=== PATIENT | female | born 1990 | race Caucasian/White ===

== ENCOUNTER 2020-10-11 19:29 | Outpatient (CLI) | payer OTHER ==
--- NOTE | 2020-10-11 21:41 | Ultrasound Report ---
PROCEDURE: Pelvic w/Transvaginal INDICATIONS: RT LOWER QUAD PAIN, STEATOSIS OF LIVER TECHNIQUE: Real-time scanning was performed of the pelvic organs, with image documentation. Additional endovagi nal scanning was necessary due to incomplete visualization of the adnexal and endometrial structures by transabdominal scanning. COMPARISON: None. FINDINGS: No pathologic free abdominal or pelvic fluid. Uterus: Uterus is normal in size at 9.4 x 5.3 x 6.6 cm. A small left lateral intramural fibroid is seen in the uterus measuring 0.6 x 0.6 x 0.5 cm. The endometrium measures 10 mm in combined thickness . Ovaries: Right ovary measures 3.9 x 2.4 x 4.1 cm (19.5 mL). Left ovary measures 2.2 x 1.8 x 1.7 cm ( 3.4 mL). A right ovarian cyst measures 3.0 x 2.1 x 2.4 cm with mildly thickened rogers. No separate ri ght adnexal mass is seen. IMPRESSION: 1. The right ovary is enlarged by a complex cyst with mildly thickened rogers, which is favored to re present a hemorrhagic cyst or corpus luteal cyst. Recommend repeat pelvic ultrasound in 6-12 weeks to evaluate for resolution. 2. Normal left ovary. No sonographic signs of ovarian torsion. Reviewed by: David Mendieta MD on 10/11/2020 9:39 PM PDT Approved by: David Mendieta MD on 10/11/2020 9:39 PM PDT Station ID: [id number]
--- NOTE | 2020-10-11 21:46 | Ultrasound Report ---
PROCEDURE: Abdomen Limited INDICATIONS: RT LOWER QUAD PAIN, STEATOSIS OF LIVER TECHNIQUE: Real-time scanning was performed of the abdominal and retroperitoneal organs, with image documentatio n. COMPARISON: None. FINDINGS: Liver: Liver is normal in size and mildly increased in echogenicity. Gallbladder: The gallbladder appears normal without gallstones or gallbladder wall thickening. There is no pericholecystic fluid. Sonographic Lynch sign is negative. Biliary ducts: Intrahepatic bile ducts are non-dilated. Extrahepatic bile duct caliber measures 3 m m. Normal is 6-7 mm or less in diameter, or 10 mm or less post-cholecystectomy. Pancreas: Visualized portions of the pancreas are sonographically normal. Kidneys: Right kidney normal in size and echotexture. Right kidney measures 9.2 cm long. No hydrone phrosis or nephrolithiasis. No solid masses. IVC: Intrahepatic inferior vena cava is patent. IMPRESSION: 1. No acute abnormality is seen in the right upper quadrant. Normal gallbladder. 2. Mildly increased hepatic echogenicity is nonspecific, but most commonly encountered in the settin g of hepatic steatosis. However, other causes of hepatocellular disease are not excluded. Recommend c linical correlation. Reviewed by: David Mendieta MD on 10/11/2020 9:44 PM PDT Approved by: David Mendieta MD on 10/11/2020 9:44 PM PDT Station ID: [id number]
== END 2020-10-11 19:30 | disposition home or self-care (01) ==
LOC: DI 19:29
PROVIDERS: ATTEND Nurse Practitioner Family
DX: R10.31 Right lower quadrant pain (principal); K76.0 Fatty (change of) liver, not elsewhere classified; N83.201 Unspecified ovarian cyst, right side

== ENCOUNTER 2020-12-20 08:03 | Outpatient (CLI) | payer OTHER ==
--- NOTE | 2020-12-20 11:44 | Ultrasound Report ---
PROCEDURE: Pelvic w/Transvaginal INDICATIONS: RIGHT OVARY CYST TECHNIQUE: Real-time scanning was performed of the pelvic organs, with image documentation. Additional endovagi nal scanning was necessary due to incomplete visualization of the adnexal and endometrial structures by transabdominal scanning. COMPARISON: 10/11/2020 FINDINGS: No pathologic free abdominal or pelvic fluid. Uterus: Uterus is normal in size at 8.6 x 4.6 x 5.9 cm. The endometrium measures 4 mm in combined t hickness. Homogeneous uterine echotexture. Ovaries: Right ovary measures 4.4 x 3.9 x 2.2 cm with ovarian volume of 19.7 mL. Previously describe d complicated right ovarian cyst has resolved. Left ovary measures 4.1 x 3.1 x 2.7 cm with ovarian vo lume of 17.9 mL. No suspicious ovarian or adnexal mass lesions. IMPRESSION: Unremarkable sonographic evaluation of the pelvis. Interval resolution of previously described compli cated right ovarian cyst. Reviewed by: Timothy West MD on 12/20/2020 11:43 AM PDT Approved by: Timothy West MD on 12/20/2020 11:43 AM PDT Station ID: [id number]
== END 2020-12-20 08:04 | disposition home or self-care (01) ==
LOC: DI 08:03
PROVIDERS: ATTEND Nurse Practitioner Family
DX: N83.201 Unspecified ovarian cyst, right side (principal)

== ENCOUNTER 2021-01-06 17:30 | Outpatient (CLI) | payer OTHER ==
[2021-01-06 17:51] LABS: BASOPHILS # (AUTO) 0.1 10^3/uL (0.0-0.1); BASOPHILS % (AUTO) 0.7 %; EOSINOPHILS # (AUTO) 0.3 10^3/uL (0.0-0.7); EOSINOPHILS % (AUTO) 4.1 %; HCT - HEMATOCRIT 38.5 % (37.0-47.0); LYMPHOCYTES # (AUTO) 1.8 10^3/uL (1.5-3.5); LYMPHOCYTES % (AUTO) 24.1 %; MEAN CORPUSCULAR HGB CONC 33.8 g/dL (32.0-36.0); MEAN CORPUSCULAR VOLUME 97.7 fL (81.0-99.0); MEAN PLATELET VOLUME 10.4 fL (7.9-10.8); MONOCYTES # (AUTO) 0.4 10^3/uL (0.0-1.0); MONOCYTES % (AUTO) 5.4 %; NEUTROPHILS % (AUTO) 65.4 %; PLT - PLATELET COUNT 230 10^3/uL (130-450); RED BLOOD COUNT 3.94 10^6/uL (4.20-5.40); RED CELL DISTRIBUTION WIDTH 11.7 % (12.0-15.0); WHITE BLOOD COUNT 7.6 x10^3/uL (4.8-10.8)
[2021-01-06 18:04] LABS: ALBUMIN 4.3 g/dL (3.2-5.5); ALBUMIN/GLOBULIN RATIO 1.4 (1.0-2.2); BILIRUBIN,TOTAL 0.6 mg/dL (0.2-1.0); CALCIUM 9.2 mg/dL (8.5-10.3); POTASSIUM 3.6 mmol/L (3.5-5.0); TOTAL PROTEIN 7.4 g/dL (6.7-8.2)
[2021-01-06 18:23] LABS: THYROID STIMULATING HORMONE 0.7 uIU/mL (0.34-5.60)
[2021-01-06 18:51] LABS: FOLLICLE STIMULATING HORMONE 2.58 mIU/mL
[2021-01-06 18:52] LABS: LUTEINIZING HORMONE 10.9 mIU/mL
== END 2021-01-06 17:31 | disposition home or self-care (01) ==
LOC: LAB 17:30
PROVIDERS: ATTEND Physician Assistant
DX: E28.2 Polycystic ovarian syndrome (principal)
CPT/HCPCS: 36415; 80053; 81599; 83001; 83002; 84402; 84403; 84443; 85025

== ENCOUNTER 2021-02-06 17:19 | Outpatient (CLI) | payer OTHER ==
[2021-02-06 17:35] LABS: BASOPHILS # (AUTO) 0.1 10^3/uL (0.0-0.1); BASOPHILS % (AUTO) 1.4 %; EOSINOPHILS # (AUTO) 0.2 10^3/uL (0.0-0.7); EOSINOPHILS % (AUTO) 2.6 %; HCT - HEMATOCRIT 37.4 % (37.0-47.0); HGB - HEMOGLOBIN 12.6 g/dL (12.0-16.0); LYMPHOCYTES # (AUTO) 1.7 10^3/uL (1.5-3.5); LYMPHOCYTES % (AUTO) 26.5 %; MEAN CORPUSCULAR HEMOGLOBIN 32.7 pg (27.0-31.0); MEAN CORPUSCULAR HGB CONC 33.7 g/dL (32.0-36.0); MEAN CORPUSCULAR VOLUME 97.1 fL (81.0-99.0); MEAN PLATELET VOLUME 10.6 fL (7.9-10.8); MONOCYTES # (AUTO) 0.5 10^3/uL (0.0-1.0); NEUTROPHILS # (AUTO) 4.1 10^3/uL (1.5-6.6); NEUTROPHILS % (AUTO) 62.2 %; PLT - PLATELET COUNT 222 10^3/uL (130-450); RED BLOOD COUNT 3.85 10^6/uL (4.20-5.40); RED CELL DISTRIBUTION WIDTH 11.8 % (12.0-15.0); WHITE BLOOD COUNT 6.5 x10^3/uL (4.8-10.8)
== END 2021-02-06 17:20 | disposition home or self-care (01) ==
LOC: LAB 17:19
PROVIDERS: ATTEND Physician Assistant
DX: R71.8 Other abnormality of red blood cells (principal)
CPT/HCPCS: 36415; 85025

== ENCOUNTER 2021-05-19 19:15 | Emergency (ER) | payer OTHER ==
[2021-05-19 19:38] LABS: BASOPHILS # (AUTO) 0.1 10^3/uL (0.0-0.1); BASOPHILS % (AUTO) 1.4 %; EOSINOPHILS # (AUTO) 0.3 10^3/uL (0.0-0.7); EOSINOPHILS % (AUTO) 3.3 %; HGB - HEMOGLOBIN 12.2 g/dL (12.0-16.0); LYMPHOCYTES % (AUTO) 25.3 %; MEAN CORPUSCULAR HEMOGLOBIN 32.8 pg (27.0-31.0); MEAN CORPUSCULAR VOLUME 99.5 fL (81.0-99.0); MEAN PLATELET VOLUME 10.4 fL (7.9-10.8); MONOCYTES # (AUTO) 0.6 10^3/uL (0.0-1.0); MONOCYTES % (AUTO) 7.8 %; NEUTROPHILS # (AUTO) 4.9 10^3/uL (1.5-6.6); NEUTROPHILS % (AUTO) 62.1 %; PLT - PLATELET COUNT 251 10^3/uL (130-450); RED BLOOD COUNT 3.72 10^6/uL (4.20-5.40); RED CELL DISTRIBUTION WIDTH 12.3 % (12.0-15.0); WHITE BLOOD COUNT 7.8 x10^3/uL (4.8-10.8)
[2021-05-19 19:52] LABS: ALBUMIN 4.4 g/dL (3.2-5.5); ALBUMIN/GLOBULIN RATIO 1.5 (1.0-2.2); CREATININE 0.8 mg/dL (0.4-1.0); POTASSIUM 3.6 mmol/L (3.5-5.0); TOTAL PROTEIN 7.3 g/dL (6.7-8.2)
[2021-05-19 20:24] LABS: BILIRUBIN,URINE NEGATIVE (NEGATIVE); GLUCOSE, URINE (UA) NEGATIVE (NEGATIVE); KETONES,URINE (UA) NEGATIVE (NEGATIVE); LEUKOCYTE ESTERASE, URINE NEGATIVE (NEGATIVE); NITRITE,URINE NEGATIVE (NEGATIVE); OCCULT BLOOD,URINE NEGATIVE (NEGATIVE); PH,URINE 6.5 PH (5.0-7.5); PROTEIN,URINE NEGATIVE (NEGATIVE); UROBILINOGEN,URINE 0.2 (NORMAL) E.U./dL (NORMAL)
[2021-05-19 20:25] LABS: CLARITY,URINE CLEAR (CLEAR); HCG UR QUAL NEGATIVE
[2021-05-19] MEDS ORDERED: ONDANSETRON 4 MG/2 ML VIAL IVP STA (20:35)
[2021-05-19] MEDS ORDERED: ACETAMINOPHEN 325 MG TABLET PO STA (20:36)
--- NOTE | 2021-05-19 22:38 | Ultrasound Report ---
PROCEDURE: Pelvic w/Doppler Complete INDICATIONS: RLQ pain since 1400 TECHNIQUE: Real-time scanning was performed of the pelvic organs, with image documentation. Additional endovagi nal scanning was necessary due to incomplete visualization of the adnexal and endometrial structures by transabdominal scanning. COMPARISON: None. FINDINGS: No pathologic free abdominal or pelvic fluid. Uterus: Uterus is retroverted and normal in size at 9.1 x 4.8 x 5.5 cm. The endometrium measures 7. 2 mm in combined thickness. There is a small echogenic nodule along the anterior wall of the endomet rial canal measuring 0.5 x 0.3 to 0.4 cm. Ovaries: The right ovary measures 2.3 x 2.0 x 3.5 cm for a volume of 12.4 cc. The left ovary measure s 3.9 x 2.5 x 3.1 cm for a volume of 15.5 cc. There are greater than 12 subcentimeter follicles in ea ch ovary. There is a dominant follicle on the left ovary measuring 1.7 cm. There is normal vascularit y to each ovary. No suspicious adnexal fluid. IMPRESSION: 1. 5 mm endometrial nodule, potentially a polyp 2. Numerous subcentimeter follicles in each ovary in the setting of slightly enlarged ovaries. This m eets ultrasound criteria for polycystic ovarian syndrome, however without hyperandrogenism or ovulato ry dysfunction, this is nonspecific and can be physiologic. Correlate with biochemical findings. Reviewed by: Janis Tapia MD on 05/19/2021 10:37 PM PST Approved by: Janis Tapia MD on 05/19/2021 10:37 PM PST Station ID: [id number]
[2021-05-19 22:45] VITALS: BP 112/63
--- NOTE | 2021-05-19 22:56 | ED Physician Documentation ---
History of Present Illness - Stated complaint Stated Complaint: ABD PX/NAUSEA - Chief complaint Chief Complaint: Abd Pain - History obtained from History obtained from: Patient - Additonal information Additional information: 31 -year-old woman with past Medical history of ectopic status post laparoscopy, appendicitis status post appendectomy, presents with right lower abdominal pain Associated with nausea starting suddenly at 1400. Pain is aching, constant, nonradiating, 3/10, without exacerbating or relieving symptoms. Patient's LMP was about 20 days ago. denies fever, diarrhea, back pain, urinary sx. Review of Systems Ten Systems: 10 systems reviewed and negative Constitutional: denies: Fever, Chills GI: reports: Abdominal Pain, Nausea. denies: Vomiting, Diarrhea : denies: Dysuria PD PAST MEDICAL HISTORY - Allergies Allergies/Adverse Reactions: Allergies Allergy/AdvReac Type Severity Reaction Status Date / Time No Known Drug Allergies Allergy Verified 05/19/21 19:22 PD ED PE NORMAL - Vitals Vital signs reviewed: Yes - General General: Alert and oriented X 3, No acute distress, Well developed/nourished - HEENT HEENT: Atraumatic, PERRL, EOMI - Neck Neck: Supple, no meningeal sign - Cardiac Cardiac: RRR - Respiratory Respiratory: No respiratory distress, Clear bilaterally - Abdomen Abdomen: Non tender, Non distended, Other (discomfort to RLQ palpation) - Back Back: No CVA TTP - Derm Derm: Normal color - Extremities Extremities: No deformity - Neuro Neuro: Alert and oriented X 3 - Psych Psych: Normal mood, Normal affect Results - Vitals Vitals: Vital Signs - 24 hr 05/19/21 05/19/21 19:20 22:44 Temperature 36.8 C Heart Rate 98 58 L Respiratory 18 18 Rate Blood Pressure 132/61 H 112/63 O2 Saturation 100 98 Oxygen O2 Source Room air - Labs Labs: Laboratory Tests 05/19/21 05/19/21 05/19/21 19:30 19:30 20:14 WBC 7.8 RBC 3.72 L Hgb 12.2 Hct 37.0 MCV 99.5 H MCH 32.8 H MCHC 33.0 RDW 12.3 Plt Count 251 MPV 10.4 Neut # (Auto) 4.9 Lymph # (Auto) 2.0 [place] # (Auto) 0.6 Eos # (Auto) 0.3 Baso # (Auto) 0.1 Absolute Nucleated RBC 0.00 Nucleated RBC % 0.0 Sodium 136 Potassium 3.6 Chloride 102 Carbon Dioxide 28 Anion Gap 6.0 BUN 13 Creatinine 0.8 Estimated GFR (MDRD) 83 L Glucose 116 H Calcium 9.0 Total Bilirubin 1.0 AST 18 ALT 15 Alkaline Phosphatase 31 L Total Protein 7.3 Albumin 4.4 Globulin 2.9 Albumin/Globulin Ratio 1.5 Lipase 46 Urine Color YELLOW Urine Clarity CLEAR Urine pH 6.5 Ur Specific [place] 1.020 Urine Protein NEGATIVE Urine Glucose (UA) NEGATIVE Urine Ketones NEGATIVE Urine Occult Blood NEGATIVE Urine Nitrite NEGATIVE Urine Bilirubin NEGATIVE Urine Urobilinogen 0.2 (NORMAL) Ur Leukocyte Esterase NEGATIVE Ur Microscopic Review NOT INDICATED Urine Culture Comments NOT INDICATED Urine HCG, Qual NEGATIVE PD MEDICAL DECISION MAKING - ED course ED course: 31-year-old woman presents with right lower abdominal pain, found to have multiple follicles versus cyst on bilateral ovaries as well as a uterine polyp versus nodule. I discussed these findings with the patient and advised her to follow-up with [employer]SE MANAGER. Return precautions given. Departure - Departure Disposition: 01 Home, Self Care Clinical Impression: Endometrial stromal nodule, Ovarian cyst Condition: Stable Instructions: Cysts Ovarian Follow-Up: Allyssa Lawson MD [Provider Admit Priv/Credential] - Comments: You were seen in the emergency department for abdominal pain. Your labwork looked good, you do not have a UTI, and you are not . You have multiple cysts on both of your ovaries and a 5 mm endometrium nodule on ultrasound that could potentially be a polyp. You should see your [employer]SE MANAGER or follow-up with our OB Dr. Lawson. Return to the emergency department if you have any new or worsening symptoms or other concerns. Discharge Date/Time: 05/19/21 23:04
== END 2021-05-19 23:04 | disposition home or self-care (01) ==
LOC: ED 19:15
DX: D26.1 Other benign neoplasm of corpus uteri (principal); N83.202 Unspecified ovarian cyst, left side; N83.201 Unspecified ovarian cyst, right side; R11.0 Nausea; Z90.49 Acquired absence of other specified parts of digestive tract
CPT/HCPCS: 36415; 80053; 81001; 81003; 81025; 83690; 85025; 87086; 93975; 96374; 99284

== ENCOUNTER 2021-06-06 18:32 | Emergency (ER) | payer OTHER ==
[2021-06-06 19:18] LABS: BASOPHILS # (AUTO) 0.1 10^3/uL (0.0-0.1); BASOPHILS % (AUTO) 0.8 %; EOSINOPHILS # (AUTO) 0.2 10^3/uL (0.0-0.7); EOSINOPHILS % (AUTO) 2.6 %; HGB - HEMOGLOBIN 12.3 g/dL (12.0-16.0); LYMPHOCYTES # (AUTO) 1.6 10^3/uL (1.5-3.5); LYMPHOCYTES % (AUTO) 17.4 %; MEAN CORPUSCULAR HEMOGLOBIN 32.5 pg (27.0-31.0); MEAN CORPUSCULAR HGB CONC 33.2 g/dL (32.0-36.0); MEAN CORPUSCULAR VOLUME 97.6 fL (81.0-99.0); MEAN PLATELET VOLUME 10.2 fL (7.9-10.8); MONOCYTES # (AUTO) 0.6 10^3/uL (0.0-1.0); MONOCYTES % (AUTO) 6.2 %; NEUTROPHILS # (AUTO) 6.5 10^3/uL (1.5-6.6); NEUTROPHILS % (AUTO) 72.7 %; PLT - PLATELET COUNT 235 10^3/uL (130-450); RED BLOOD COUNT 3.79 10^6/uL (4.20-5.40); RED CELL DISTRIBUTION WIDTH 12.2 % (12.0-15.0); WHITE BLOOD COUNT 8.9 x10^3/uL (4.8-10.8)
[2021-06-06 19:20] LABS: BILIRUBIN,URINE NEGATIVE (NEGATIVE); CLARITY,URINE CLEAR (CLEAR); GLUCOSE, URINE (UA) NEGATIVE (NEGATIVE); KETONES,URINE (UA) NEGATIVE (NEGATIVE); LEUKOCYTE ESTERASE, URINE NEGATIVE (NEGATIVE); NITRITE,URINE NEGATIVE (NEGATIVE); OCCULT BLOOD,URINE NEGATIVE (NEGATIVE); PROTEIN,URINE NEGATIVE (NEGATIVE); UROBILINOGEN,URINE 0.2 (NORMAL) E.U./dL (NORMAL)
[2021-06-06 19:32] LABS: ALBUMIN/GLOBULIN RATIO 1.5 (1.0-2.2); BILIRUBIN,TOTAL 0.7 mg/dL (0.2-1.0); CALCIUM 8.8 mg/dL (8.5-10.3); CREATININE 0.9 mg/dL (0.4-1.0); POTASSIUM 3.7 mmol/L (3.5-5.0); TOTAL PROTEIN 6.7 g/dL (6.7-8.2)
--- NOTE | 2021-06-06 20:10 | ED Physician Documentation ---
History of Present Illness - Stated complaint Stated Complaint: OVARY PX, BACK PX, NAUSEA - Chief complaint Chief Complaint: Abd Pain - History obtained from History obtained from: Patient - History of Present Illness Timing: How many weeks ago (3) Pain level max: 3 Pain level now: 3 - Additonal information Additional information: Patient is a 31-year-old female who presents to the emergency department complaining of right-sided pelvic pain. She had an ectopic at this site several years ago. She was seen here 2 to 3 weeks ago had a pelvic ultrasound which showed possible polycystic ovarian syndrome. She states that the pain has continued, unchanged from her prior visit. She states she took a home test today which was faintly positive. Came in for evaluation. No vaginal bleeding or discharge. Nothing makes it better or worse. Review of Systems Ten Systems: 10 systems reviewed and negative Constitutional: denies: Fever, Chills Nose: denies: Rhinorrhea / runny nose, Congestion Throat: denies: Sore throat Cardiac: denies: Chest pain / pressure Respiratory: denies: Cough GI: denies: Abdominal Pain, Nausea, Vomiting, Diarrhea Skin: denies: Rash Musculoskeletal: denies: Neck pain, Back pain Neurologic: denies: Headache PD PAST MEDICAL HISTORY - Past Medical History Past Medical History: Yes Cardiovascular: None Respiratory: None Neuro: Migraines Endocrine/Autoimmune: None GI: None MORNING SHOW HOST: Ectopic , Ovarian cysts, Miscarriage(s) : None HEENT: None Psych: None Musculoskeletal: None Derm: None - Past Surgical History Past Surgical History: Yes General: Appendectomy /MORNING SHOW HOST: Other - Present Medications Home Medications: Ambulatory Orders Medication Instructions Recorded Confirmed Ondansetron Odt [Zofran Odt] 4 mg TL Q6H PRN 06/06/21 06/06/21 - Allergies Allergies/Adverse Reactions: Allergies Allergy/AdvReac Type Severity Reaction Status Date / Time No Known Drug Allergies Allergy Verified 06/06/21 18:36 - Social History Does the pt smoke?: No Smoking Status: Never smoker Does the pt drink ETOH?: No Does the pt have substance abuse?: Yes Substance Use and Type: CBD oil / Products - Immunizations Immunizations are current?: No Immunizations: Other immun not current PD ED PE NORMAL - Vitals Vital signs reviewed: Yes - General General: Alert and oriented X 3, No acute distress, Well developed/nourished - HEENT HEENT: Moist mucous membranes - Neck Neck: Supple, no meningeal sign - Cardiac Cardiac: RRR, Strong equal pulses - Respiratory Respiratory: No respiratory distress, Clear bilaterally - Abdomen Abdomen: Soft, Non tender, Non distended - Female Female : Pt declined - Derm Derm: Warm and dry - Extremities Extremities: No edema, No calf tenderness / cord - Neuro Neuro: Alert and oriented X 3 - Psych Psych: Normal mood, Normal affect Results - Vitals Vitals: Vital Signs - 24 hr 06/06/21 06/06/21 06/06/21 18:36 19:12 19:14 Temperature 36.8 C Heart Rate 82 Respiratory 18 16 16 Rate Blood Pressure 140/85 H O2 Saturation 98 06/06/21 20:13 Temperature 36.7 C Heart Rate 81 Respiratory 16 Rate Blood Pressure 138/83 H O2 Saturation 97 Oxygen O2 Source Room air - Labs Labs: Laboratory Tests 06/06/21 06/06/21 06/06/21 18:50 19:14 19:14 WBC 8.9 RBC 3.79 L Hgb 12.3 Hct 37.0 MCV 97.6 MCH 32.5 H MCHC 33.2 RDW 12.2 Plt Count 235 MPV 10.2 Neut # (Auto) 6.5 Lymph # (Auto) 1.6 [place] # (Auto) 0.6 Eos # (Auto) 0.2 Baso # (Auto) 0.1 Absolute Nucleated RBC 0.00 Nucleated RBC % 0.0 Sodium 135 Potassium 3.7 Chloride 100 L Carbon Dioxide 28 Anion Gap 7.0 BUN 11 Creatinine 0.9 Estimated GFR (MDRD) 72 L Glucose 112 H Calcium 8.8 Total Bilirubin 0.7 AST 17 ALT 15 Alkaline Phosphatase 30 L Total Protein 6.7 Albumin 4.0 Globulin 2.7 Albumin/Globulin Ratio 1.5 Lipase 38 HCG, Quant Urine Color YELLOW Urine Clarity CLEAR Urine pH 7.0 Ur Specific [place] 1.015 Urine Protein NEGATIVE Urine Glucose (UA) NEGATIVE Urine Ketones NEGATIVE Urine Occult Blood NEGATIVE Urine Nitrite NEGATIVE Urine Bilirubin NEGATIVE Urine Urobilinogen 0.2 (NORMAL) Ur Leukocyte Esterase NEGATIVE Ur Microscopic Review NOT INDICATED Urine Culture Comments NOT INDICATED 06/06/21 19:14 WBC RBC Hgb Hct MCV MCH MCHC RDW Plt Count MPV Neut # (Auto) Lymph # (Auto) [place] # (Auto) Eos # (Auto) Baso # (Auto) Absolute Nucleated RBC Nucleated RBC % Sodium Potassium Chloride Carbon Dioxide Anion Gap BUN Creatinine Estimated GFR (MDRD) Glucose Calcium Total Bilirubin AST ALT Alkaline Phosphatase Total Protein Albumin Globulin Albumin/Globulin Ratio Lipase HCG, Quant 9.82 Urine Color Urine Clarity Urine pH Ur Specific [place] Urine Protein Urine Glucose (UA) Urine Ketones Urine Occult Blood Urine Nitrite Urine Bilirubin Urine Urobilinogen Ur Leukocyte Esterase Ur Microscopic Review Urine Culture Comments PD MEDICAL DECISION MAKING - ED course Complexity details: reviewed results, re-evaluated patient, considered differential, d/w patient ED course: 31-year-old female with right pelvic pain, ongoing for the past 2 to 3 weeks. Possibly related to ovarian cyst. She has had the right fallopian tube removed. Her beta hCG is 9.8. Ultrasound was at the bedside and we did discuss with the patient whether she wanted to have an ultrasound tonight or not. Patient has elected not to repeat an ultrasound tonight and instead will repeat her hCG level in 3 days. She will return if she worsens. Abdomen is soft, nontender nondistended. Patient counseled regarding signs and symptoms for which I martha elieve and urgent re-evaluation would be necessary. Patient with good understanding of and agreement to plan and is comfortable going home at this time This document was made in part using voice recognition software. While efforts are made to proofread this document, sound alike and grammatical errors may occur. Departure - Departure Disposition: 01 Home, Self Care Clinical Impression: Pelvic pain, Positive test Instructions: ED Pelvic Pain [facility] Follow-Up: Jeffrey Schmitt MD [Primary Care Provider] - Tomorrow Comments: Your hCG level is 9.8 today. This could represent a very early . It is recommended that you have a repeat hCG in [address] can [address] an order for this. If this is positive, it is likely a true . If it is negative, it is likely not a true . We did have an ultrasound ordered today, but you have declined this. I think this is reasonable awaiting the results of the repeat hCG. Please return if you worsen. Discharge Date/Time: 06/06/21 20:13
[2021-06-06 20:15] VITALS: BP 138/83
== END 2021-06-06 20:13 | disposition home or self-care (01) ==
LOC: ED 18:32
DX: R10.2 Pelvic and perineal pain (principal); Z32.01 Encounter for pregnancy test, result positive
CPT/HCPCS: 36415; 80053; 81001; 81003; 83690; 84702; 85025; 87086; 99283; 99284

== ENCOUNTER 2021-06-09 08:05 | Outpatient (CLI) | payer OTHER | END 2021-06-09 08:06 | disposition home or self-care (01) | LOC: LAB 08:05 | PROVIDERS: ATTEND Physician Assistant | DX: Z32.01 Encounter for pregnancy test, result positive (principal) | CPT/HCPCS: 36415; 81025; 84702 ==

== ENCOUNTER 2021-06-19 15:42 | Outpatient (CLI) | payer OTHER ==
--- NOTE | 2021-06-20 12:49 | Ultrasound Report ---
PROCEDURE: OB First Trimester w/TV INDICATIONS: POSITIVE TEST OUTSIDE/PRIOR DATING DATA: Last menstrual period (LMP): 05/07/2021. LMP-based estimated date of delivery (KAYE): 02/11/2022. First dating scan (date and location): 06/19/2001. Estimated date of delivery (KAYE) from first dating scan: Not applicable. TECHNIQUE: Real-time scanning was performed of the fetus and maternal pelvic organs, with image documentation. Endovaginal scanning was also performed to better visualize the fetus and maternal ovaries. COMPARISON: None FINDINGS: No gestational sac in the uterus. Echogenic endometrium with a double layer thickness of 5 mm. No free fluid in the pelvis. Both ovaries are normal in size. There are numerous subcentimeter cy sts in the peripheral aspects of both ovaries are well identified in the right and at least 6 identif ied in the left. IMPRESSION: No sonographic evidence of intrauterine . Multiple subcentimeter cysts in the peripheral aspects of both ovaries raising concern for DCIS in th e appropriate clinical setting. Reviewed by: Braeden Bravo MD on 06/20/2021 12:48 PM PST Approved by: Braeden Bravo MD on 06/20/2021 12:48 PM PST Station ID: [id number]
== END 2021-06-19 15:43 | disposition home or self-care (01) ==
LOC: DI 15:42
PROVIDERS: ATTEND Physician Assistant
DX: N83.202 Unspecified ovarian cyst, left side (principal); N83.201 Unspecified ovarian cyst, right side; Z32.01 Encounter for pregnancy test, result positive

== ENCOUNTER 2021-08-23 19:25 | Emergency (ER) | payer OTHER ==
[2021-08-23 19:51] LABS: BILIRUBIN,URINE NEGATIVE (NEGATIVE); GLUCOSE, URINE (UA) NEGATIVE (NEGATIVE); KETONES,URINE (UA) NEGATIVE (NEGATIVE); LEUKOCYTE ESTERASE, URINE NEGATIVE (NEGATIVE); NITRITE,URINE NEGATIVE (NEGATIVE); OCCULT BLOOD,URINE NEGATIVE (NEGATIVE); PROTEIN,URINE NEGATIVE (NEGATIVE); UROBILINOGEN,URINE 0.2 (NORMAL) E.U./dL (NORMAL)
[2021-08-23 19:56] LABS: BASOPHILS # (AUTO) 0.1 10^3/uL (0.0-0.1); BASOPHILS % (AUTO) 1.2 %; EOSINOPHILS # (AUTO) 0.5 10^3/uL (0.0-0.7); EOSINOPHILS % (AUTO) 6.2 %; HCT - HEMATOCRIT 36.5 % (37.0-47.0); HGB - HEMOGLOBIN 12.1 g/dL (12.0-16.0); LYMPHOCYTES # (AUTO) 2.2 10^3/uL (1.5-3.5); LYMPHOCYTES % (AUTO) 28.4 %; MEAN CORPUSCULAR HEMOGLOBIN 32.5 pg (27.0-31.0); MEAN CORPUSCULAR HGB CONC 33.2 g/dL (32.0-36.0); MEAN CORPUSCULAR VOLUME 98.1 fL (81.0-99.0); MEAN PLATELET VOLUME 10.6 fL (7.9-10.8); MONOCYTES # (AUTO) 0.6 10^3/uL (0.0-1.0); MONOCYTES % (AUTO) 7.5 %; NEUTROPHILS # (AUTO) 4.3 10^3/uL (1.5-6.6); NEUTROPHILS % (AUTO) 56.6 %; PLT - PLATELET COUNT 233 10^3/uL (130-450); RED BLOOD COUNT 3.72 10^6/uL (4.20-5.40); RED CELL DISTRIBUTION WIDTH 12.2 % (12.0-15.0); WHITE BLOOD COUNT 7.6 x10^3/uL (4.8-10.8)
[2021-08-23 20:03] LABS: CLARITY,URINE CLEAR (CLEAR)
[2021-08-23 20:22] LABS: ALBUMIN 4.6 g/dL (3.2-5.5); ALBUMIN/GLOBULIN RATIO 1.6 (1.0-2.2); BILIRUBIN,TOTAL 0.5 mg/dL (0.2-1.0); CALCIUM 9.3 mg/dL (8.5-10.3); CREATININE 0.8 mg/dL (0.4-1.0); POTASSIUM 3.6 mmol/L (3.5-5.0); TOTAL PROTEIN 7.5 g/dL (6.7-8.2)
[2021-08-23 20:43] VITALS: BP 126/82
--- NOTE | 2021-08-23 20:59 | ED Physician Documentation ---
History of Present Illness - Stated complaint Stated Complaint: ABD PX - Chief complaint Chief Complaint: Abd Pain - History obtained from History obtained from: Patient - History of Present Illness Timing: How many days ago (3) Pain level max: 10 Pain level now: 5 - Additonal information Additional information: 31-year-old female presents to the emergency department left pelvic pain. Started about 3 days ago, waxing and waning in intensity. She states it was worse last night. She states similar to prior ovarian cyst. She has had a right-sided ectopic in the past that ruptured her fallopian tube. Concerned about possible ectopic. She states she took 4 tests at home, 2 of which were weakly positive, The other 2 were negative. Has a miscarriage at about 8 weeks EGA in May. hCG level level trended to 3 at that time. Nothing makes the pain better or worse. 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 - Present Medications Home Medications: Ambulatory Orders Medication Instructions Recorded Confirmed Pnv No.95/Ferrous Fum/Folic AC 1 tab PO DAILY PM 08/23/21 08/23/21 [ Tablet] - Allergies Allergies/Adverse Reactions: Allergies Allergy/AdvReac Type Severity Reaction Status Date / Time No Known Drug Allergies Allergy Verified 08/23/21 19:35 - Social History Does the pt smoke?: No Smoking Status: Never smoker Does the pt drink ETOH?: No Does the pt have substance abuse?: Yes - Immunizations Immunizations are current?: No Immunizations: Other immun not current - POLST Patient has POLST: No PD ED PE NORMAL - Vitals Vital signs reviewed: Yes - General General: Alert and oriented X 3, No acute distress, Well developed/nourished - HEENT HEENT: Moist mucous membranes - Neck Neck: Supple, no meningeal sign - Cardiac Cardiac: RRR - Respiratory Respiratory: No respiratory distress, Clear bilaterally - Abdomen Abdomen: Soft, Non tender, Non distended - Derm Derm: Warm and dry - Extremities Extremities: No edema - Neuro Neuro: Alert and oriented X 3 - Psych Psych: Normal mood, Normal affect Results - Vitals Vitals: Vital Signs - 24 hr 08/23/21 08/23/21 19:27 20:42 Temperature 36.8 C 36.6 C Heart Rate 87 60 Respiratory 16 16 Rate Blood Pressure 148/86 H 126/82 H O2 Saturation 99 99 Oxygen O2 Source Room air - Labs Labs: Laboratory Tests 08/23/21 08/23/21 08/23/21 19:37 19:48 19:48 WBC 7.6 RBC 3.72 L Hgb 12.1 Hct 36.5 L MCV 98.1 MCH 32.5 H MCHC 33.2 RDW 12.2 Plt Count 233 MPV 10.6 Neut # (Auto) 4.3 Lymph # (Auto) 2.2 [place] # (Auto) 0.6 Eos # (Auto) 0.5 Baso # (Auto) 0.1 Absolute Nucleated RBC 0.00 Nucleated RBC % 0.0 Sodium 135 Potassium 3.6 Chloride 100 L Carbon Dioxide 27 Anion Gap 8.0 BUN 14 Creatinine 0.8 Estimated GFR (MDRD) 83 L Glucose 90 Calcium 9.3 Total Bilirubin 0.5 AST 19 ALT 17 Alkaline Phosphatase 31 L Total Protein 7.5 Albumin 4.6 Globulin 2.9 Albumin/Globulin Ratio 1.6 Lipase 40 HCG, Quant Urine Color YELLOW Urine Clarity CLEAR Urine pH 6.0 Ur Specific [place] 1.025 Urine Protein NEGATIVE Urine Glucose (UA) NEGATIVE Urine Ketones NEGATIVE Urine Occult Blood NEGATIVE Urine Nitrite NEGATIVE Urine Bilirubin NEGATIVE Urine Urobilinogen 0.2 (NORMAL) Ur Leukocyte Esterase NEGATIVE Ur Microscopic Review NOT INDICATED Urine Culture Comments NOT INDICATED 08/23/21 19:48 WBC RBC Hgb Hct MCV MCH MCHC RDW Plt Count MPV Neut # (Auto) Lymph # (Auto) [place] # (Auto) Eos # (Auto) Baso # (Auto) Absolute Nucleated RBC Nucleated RBC % Sodium Potassium Chloride Carbon Dioxide Anion Gap BUN Creatinine Estimated GFR (MDRD) Glucose Calcium Total Bilirubin AST ALT Alkaline Phosphatase Total Protein Albumin Globulin Albumin/Globulin Ratio Lipase HCG, Quant < 0.60 Urine Color Urine Clarity Urine pH Ur Specific [place] Urine Protein Urine Glucose (UA) Urine Ketones Urine Occult Blood Urine Nitrite Urine Bilirubin Urine Urobilinogen Ur Leukocyte Esterase Ur Microscopic Review Urine Culture Comments - Rads (name of study) Pelvic ultrasound Radiology: Final report received, EMP read contemporaneously, See rad report (Left ovarian hemorrhagic cyst) PD MEDICAL DECISION MAKING - ED course Complexity details: reviewed results, re-evaluated patient, considered differential, d/w patient ED course: 31-year-old female with what appears to be a left-sided hemorrhagic ovarian cyst. We will continue supportive care and have her follow-up with her doctor. hCG is negative. She declines pain medication here or for home. No significant lab abnormalities. Patient counseled regarding signs and symptoms for which I believe and urgent re-evaluation would be necessary. Patient with good understanding of and agreement to plan and is comfortable going home at this time This document was made in part using voice recognition software. While efforts are made to proofread this document, sound alike and grammatical errors may occur. Departure - Departure Disposition: 01 Home, Self Care Clinical Impression: Hemorrhagic cyst of left ovary Condition: Good Instructions: ED Cyst Ovarian Follow-Up: Jeffrey Schmitt MD [Primary Care Provider] - Comments: Please follow-up with your doctor for further care. Return if you worsen. These will generally resolve on their own, your doctor may want to perform a repeat ultrasound in 4 to 6 weeks to ensure resolution. Return for worsening pain, lightheadedness, dizziness or other new or worrisome symptoms. Your hCG is negative today. Discharge Date/Time: 08/23/21 21:06
--- NOTE | 2021-08-23 21:38 | Ultrasound Report ---
PROCEDURE: Pelvic w/Transvag+Doppler Comp INDICATIONS: pelvic pain, L, h.o ovarian cysts TECHNIQUE: Real-time scanning was performed of the pelvic organs, with image documentation. Additional endovagi nal scanning was necessary due to incomplete visualization of the adnexal and endometrial structures by transabdominal scanning. COMPARISON: None. FINDINGS: No pathologic free abdominal or pelvic fluid. Uterus: Uterus is normal in size at 9.4 x 5.2 x 5.7 cm. The endometrium measures 10 mm in combined thickness. Ovaries: Right ovary measures 3.8 x 1.9 x 3.4 cm.. It has greater than 12 follicles. Left ovary silvia ures 2.5 x 1.8 x 2.6 cm. It also has multiple follicles. There is a complex cyst measuring 2.5 x 1.8 x 2.6 cm involving the left ovary. It may represent a collapsed hemorrhagic cyst. A second prominent cyst measures 1.7 x 1.6 x 1.9 cm. There is intraovarian flow bilaterally by duplex. IMPRESSION: 1. No evidence of ovarian torsion. No evidence of acute pelvic process. 2. Numerous bilateral ovarian cysts can support a potential clinical diagnosis of polycystic ovary sy ndrome. 3. There are couple of prominent left ovarian cysts. One of the cysts may be a collapsed hemorrhagic cyst. Reviewed by: Shaji Alvarez MD on 08/23/2021 9:37 PM PST Approved by: Shaji Alvarez MD on 08/23/2021 9:37 PM PST Station ID: [id number]
== END 2021-08-23 21:06 | disposition home or self-care (01) ==
LOC: ED 19:25
DX: N83.202 Unspecified ovarian cyst, left side (principal)
CPT/HCPCS: 36415; 80053; 81001; 81003; 81025; 83690; 84702; 85025; 87086; 93975; 99283; 99284

== ENCOUNTER 2021-10-06 12:07 | Outpatient (CLI) | payer OTHER ==
[2021-10-06 12:39] LABS: ESTIMATED AVERAGE GLUCOSE 111 mg/dL (70-100); HEMOGLOBIN A1c% 5.5 % (4.27-6.07)
[2021-10-06 12:55] LABS: THYROID STIMULATING HORMONE 0.57 uIU/mL (0.34-5.60)
== END 2021-10-06 12:08 | disposition home or self-care (01) ==
LOC: LAB 12:07
PROVIDERS: ATTEND Obstetrics & Gynecology
DX: E28.2 Polycystic ovarian syndrome (principal); Z32.01 Encounter for pregnancy test, result positive
CPT/HCPCS: 36415; 81599; 83036; 84144; 84402; 84403; 84443; 84702

== ENCOUNTER 2021-10-08 16:14 | Outpatient (CLI) | payer OTHER | END 2021-10-08 16:15 | disposition home or self-care (01) | LOC: LAB 16:14 | PROVIDERS: ATTEND Obstetrics & Gynecology | DX: Z32.01 Encounter for pregnancy test, result positive (principal) | CPT/HCPCS: 36415; 84702 ==

== ENCOUNTER 2021-10-10 08:00 | Outpatient (CLI) | payer OTHER | END 2021-10-10 08:01 | disposition home or self-care (01) | LOC: LAB 08:00 | PROVIDERS: ATTEND Obstetrics & Gynecology | DX: Z32.01 Encounter for pregnancy test, result positive (principal) | CPT/HCPCS: 36415; 84702 ==

== ENCOUNTER 2021-10-23 14:00 | Emergency (ER) | payer OTHER ==
[2021-10-23 14:48] LABS: BILIRUBIN,URINE NEGATIVE (NEGATIVE); GLUCOSE, URINE (UA) NEGATIVE (NEGATIVE); KETONES,URINE (UA) NEGATIVE (NEGATIVE); LEUKOCYTE ESTERASE, URINE NEGATIVE (NEGATIVE); NITRITE,URINE NEGATIVE (NEGATIVE); OCCULT BLOOD,URINE NEGATIVE (NEGATIVE); PH,URINE 6.5 PH (5.0-7.5); PROTEIN,URINE NEGATIVE (NEGATIVE); UROBILINOGEN,URINE 0.2 (NORMAL) E.U./dL (NORMAL)
[2021-10-23 14:49] LABS: CLARITY,URINE CLEAR (CLEAR)
--- NOTE | 2021-10-23 15:42 | ED Physician Documentation ---
PD HPI URI - Stated complaint Stated Complaint: FEVER - Chief complaint Chief Complaint: Fever - History obtained from History obtained from: Patient - Additional information Additional information: 31-year-old woman at 7 weeks . She developed body aches chills and a fever of 102.3 today. Scratchy throat but no cough. No shortness of breath. No runny nose or urinary complaints. 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 , Ovarian cysts, Miscarriage(s) : None HEENT: None Psych: None Musculoskeletal: None Derm: None - Past Surgical History Past Surgical History: Yes General: Appendectomy /TOOL GRINDING MACHINE OPERATOR: Other - Present Medications Home Medications: Ambulatory Orders Medication Instructions Recorded Confirmed Pnv No.95/Ferrous Fum/Folic AC 1 tab PO DAILY PM 08/23/21 08/23/21 [ Tablet] - Allergies Allergies/Adverse Reactions: Allergies Allergy/AdvReac Type Severity Reaction Status Date / Time No Known Drug Allergies Allergy Verified 08/23/21 19:35 - Social History Does the pt smoke?: No Smoking Status: Never smoker Does the pt drink ETOH?: No Does the pt have substance abuse?: Yes - Immunizations Immunizations are current?: No Immunizations: Other immun not current - POLST Patient has POLST: No PD ED PE NORMAL - Vitals Vital signs reviewed: Yes - General General: Alert and oriented X 3, No acute distress - HEENT HEENT: Pharynx benign - Cardiac Cardiac: RRR, No murmur - Respiratory Respiratory: No respiratory distress, Clear bilaterally - Abdomen Abdomen: Non tender - Back Back: No CVA TTP - Derm Derm: No rash - Neuro Neuro: Alert and oriented X 3, Normal speech Results - Vitals Vitals: Vital Signs - 24 hr 10/23/21 14:06 Temperature 37.4 C Heart Rate 99 Respiratory 16 Rate Blood Pressure 111/70 O2 Saturation 98 Oxygen O2 Source Room air - Labs Labs: Laboratory Tests 10/23/21 10/23/21 14:21 15:15 Urine Color STRAW Urine Clarity CLEAR Urine pH 6.5 Ur Specific [place] <=1.005 Urine Protein NEGATIVE Urine Glucose (UA) NEGATIVE Urine Ketones NEGATIVE Urine Occult Blood NEGATIVE Urine Nitrite NEGATIVE Urine Bilirubin NEGATIVE Urine Urobilinogen 0.2 (NORMAL) Ur Leukocyte Esterase NEGATIVE Ur Microscopic Review NOT INDICATED Urine Culture Comments NOT INDICATED Nasal Adenovirus (PCR) NOT DETECTED Nasal B. parapertussis DNA (PCR) NOT DETECTED Nasal Coronavir 229E PCR NOT DETECTED Nasal Coronavir HKU1 PCR NOT DETECTED Nasal Coronavir NL63 PCR NOT DETECTED Nasal Coronavir OC43 PCR NOT DETECTED Nasal Enterovir/Rhinovir PCR NOT DETECTED Nasal Influenza B PCR NOT DETECTED Nasal Influenza A PCR NOT DETECTED Nasal Parainfluen 1 PCR NOT DETECTED Nasal Parainfluen 2 PCR NOT DETECTED Nasal Parainfluen 3 PCR NOT DETECTED Nasal Parainfluen 4 PCR NOT DETECTED Nasal RSV (PCR) NOT DETECTED Nasal B.pertussis DNA PCR NOT DETECTED Nasal C.pneumoniae (PCR) NOT DETECTED Mack Human Metapneumo PCR NOT DETECTED Nasal M.pneumoniae (PCR) NOT DETECTED Nasal SARS-CoV-2 (PCR) DETECTED A PD MEDICAL DECISION MAKING - ED course ED course: 31-year-old woman at 7 weeks presents with symptoms consistent with COVID and found to be positive for same. She has no symptoms of cramping or bleeding. I discussed with the pharmacist, she is not indicated for Mab therapy and none of the oral therapeutics are thought to be safe in . As such conservative care and Tylenol was advised. Departure - Departure Disposition: 01 Home, Self Care Clinical Impression: COVID-19 Condition: Good Record reviewed to determine appropriate education?: Yes Instructions: ED Viral Syndrome Comments: You are found today to be positive for COVID-19. You need to quarantine for 10 days starting today. Any sick contacts and recent contact should be notified of your COVID-positive status. I did some research, none of the therapeutics is indicated or known to be safe in . Tylenol as needed for aches and pains. Drink plenty of fluids.
[2021-10-23 16:15] LABS: CORONAVIRUS 229E-RESP PCR NOT DETECTED; CORONAVIRUS HKU1-RESP PCR NOT DETECTED; CORONAVIRUS NL63-RESP PCR NOT DETECTED; CORONAVIRUS OC43-RESP PCR NOT DETECTED
[2021-10-23 16:16] LABS: B. PARAPERTUSSIS- RESP PCR PAN NOT DETECTED; B. PERTUSSIS- RESP PCR PANEL NOT DETECTED; C. PNEUMONIAE- RESP PCR PANEL NOT DETECTED; HUMAN METAPNEUMOVIRUS NOT DETECTED; INFLUENZA A- RESP PCR PANEL NOT DETECTED; INFLUENZA B - RESP PCR PANEL NOT DETECTED; M. PNEUMONIAE- RESP PCR PANEL NOT DETECTED; PARAINFLUENZA VIRUS 1 NOT DETECTED; PARAINFLUENZA VIRUS 2 NOT DETECTED; PARAINFLUENZA VIRUS 3 NOT DETECTED; PARAINFLUENZA VIRUS 4 NOT DETECTED; RHINOVIRUS/ENTEROVIRUS NOT DETECTED; RSV- RESP PCR PANEL NOT DETECTED; SARS-CoV-2 -RESP PCR PANEL DETECTED
[2021-10-23 16:36] VITALS: BP 140/75
== END 2021-10-23 16:36 | disposition home or self-care (01) ==
LOC: ED 14:00
DX: O98.511 Other viral diseases complicating pregnancy, first trimester (principal); U07.1 COVID-19; Z3A.01 Less than 8 weeks gestation of pregnancy
CPT/HCPCS: 81001; 81003; 87086; 87633; 99282; 99283

== ENCOUNTER 2021-10-24 14:07 | Emergency (ER) | payer OTHER ==
--- NOTE | 2021-10-24 14:23 | ED Physician Documentation ---
PD HPI FEMALE - Stated complaint Stated Complaint: C+,VAGINAL BLEEDING - Chief complaint Chief Complaint: General - History obtained from History obtained from: Patient - History of Present Illness Timing - onset: How many hours ago (3-4), Today Timing - duration: Hours Timing - details: Abrupt onset Associated symptoms: Fever (2 days), Pelvic pain (cramping), Vaginal bleeding (passed small nickel sized clot and then some spotting red blood. Not bleeding further.) Contributing factors: (7 weeks by dates), Other (She did start with general malaise, fevers, nausea 2 days ago and tested positive for COVID yesterday.). No: Exposed to STD OB-PROVER History: Miscarriage(s) Similar symptoms before: Diagnosis (Has had miscarriages in early previously.) Recently seen: Emergency Dept (yesterday due to fever, aches, malaise. Did not have pelvic pain nor bleeding at that time.) Review of Systems Constitutional: reports: Fever (for 2 days), Myalgias, Fatigue Nose: reports: Congestion. denies: Rhinorrhea / runny nose Throat: denies: Sore throat Respiratory: denies: Cough GI: denies: Vomiting, Diarrhea : denies: Dysuria, Discharge Skin: denies: Rash Neurologic: reports: Generalized weakness, Headache PD PAST MEDICAL HISTORY - Past Medical History Cardiovascular: None Respiratory: None Neuro: Migraines Endocrine/Autoimmune: None GI: None PROVER: Ectopic , Ovarian cysts, Miscarriage(s) : None HEENT: None Psych: None Musculoskeletal: None Derm: None - Past Surgical History Past Surgical History: Yes General: Appendectomy /PROVER: Other - Present Medications Home Medications: Ambulatory Orders Medication Instructions Recorded Confirmed Pnv No.95/Ferrous Fum/Folic AC 1 tab PO DAILY PM 08/23/21 08/23/21 [ Tablet] - Allergies Allergies/Adverse Reactions: Allergies Allergy/AdvReac Type Severity Reaction Status Date / Time No Known Drug Allergies Allergy Verified 08/23/21 19:35 - Social History Does the pt smoke?: No Smoking Status: Never smoker Does the pt drink ETOH?: No Does the pt have substance abuse?: Yes - Immunizations Immunizations are current?: No Immunizations: Other immun not current - POLST Patient has POLST: No PD ED PE NORMAL - Vitals Vital signs reviewed: Yes - General General: Alert and oriented X 3, No acute distress (does appear concerned about possible miscarriage. ), Well developed/nourished - Abdomen Abdomen: Soft, Non tender, Non distended - Female Female : Deferred - Rectal Rectal: Deferred - Back Back: No CVA TTP - Derm Derm: Normal color Results - Vitals Vitals: Vital Signs - 24 hr 10/24/21 14:15 Temperature 37.4 C Heart Rate 86 Respiratory 18 Rate Blood Pressure 120/69 O2 Saturation 98 Oxygen O2 Source Room air - Labs Labs: Laboratory Tests 10/24/21 10/24/21 10/24/21 14:43 14:43 14:43 WBC 3.4 L RBC 3.77 L Hgb 12.3 Hct 36.5 L MCV 96.8 MCH 32.6 H MCHC 33.7 RDW 12.3 Plt Count 165 MPV 10.6 Neut # (Auto) 2.5 Lymph # (Auto) 0.3 L Lipscomb # (Auto) 0.7 Eos # (Auto) 0.0 Baso # (Auto) 0.0 Absolute Nucleated RBC 0.00 Nucleated RBC % 0.0 Sodium 135 Potassium 3.2 L Chloride 102 Carbon Dioxide 24 Anion Gap 9.0 BUN 7 Creatinine 0.7 Estimated GFR (MDRD) 96 Glucose 95 Calcium 8.7 HCG, Quant 2158.00 - Rads (name of study) OB U/S Radiology: Prelim report reviewed (gestational sac without pole 5w2d. right 2 cm CL cyst. no free fluid. no HR but is early .), See rad report PD MEDICAL DECISION MAKING - ED course Complexity details: reviewed results (she states she knows she is rH positive.), d/w organizational consultant (Drs. Raymond and Lulu were both in the OR. They conveyed through circulating nurse, their office will follow up with the patient regarding any repeat testing. She has ultrasound planned November 03.) Departure - Departure Disposition: 01 Home, Self Care Clinical Impression: Vaginal bleeding before 22 weeks gestation Qualifiers: Weeks of gestation: less than 8 weeks Qualified Code(s): Z3A.01 - Less than 8 weeks gestation of Condition: Stable Record reviewed to determine appropriate education?: Yes Instructions: Bleeding Early Preg Follow-Up: Ronnie Raymond MD [Provider Admit Priv/Credential] - Comments: Your ultrasound showed a gestational sac in the uterus measuring about 5 weeks 2 days. This is early enough to not really be able to see a heartbeat etc. The progression of the can be assessed using a hCG quantitative blood test . Here This would be confounded with your COVID-positive and not wanting to really contaminate the lab etc. I tried talking with the GREEK PROFESSOR but both physicians were in the OR at this point. They relayed to to tell you that they would have their office contact you and arrange follow-up. Tylenol or ibuprofen if needed for pains and cramps. Stay well-hydrated. Return if significantly increased bleeding, cramps, pain, etc.
[2021-10-24 14:26] VITALS: BP 120/69
[2021-10-24 14:49] LABS: BASOPHILS % (AUTO) 0.3 %; HCT - HEMATOCRIT 36.5 % (37.0-47.0); HGB - HEMOGLOBIN 12.3 g/dL (12.0-16.0); LYMPHOCYTES # (AUTO) 0.3 10^3/uL (1.5-3.5); LYMPHOCYTES % (AUTO) 8.8 %; MEAN CORPUSCULAR HEMOGLOBIN 32.6 pg (27.0-31.0); MEAN CORPUSCULAR HGB CONC 33.7 g/dL (32.0-36.0); MEAN CORPUSCULAR VOLUME 96.8 fL (81.0-99.0); MEAN PLATELET VOLUME 10.6 fL (7.9-10.8); MONOCYTES # (AUTO) 0.7 10^3/uL (0.0-1.0); NEUTROPHILS # (AUTO) 2.5 10^3/uL (1.5-6.6); NEUTROPHILS % (AUTO) 71.6 %; PLT - PLATELET COUNT 165 10^3/uL (130-450); RED BLOOD COUNT 3.77 10^6/uL (4.20-5.40); RED CELL DISTRIBUTION WIDTH 12.3 % (12.0-15.0); WHITE BLOOD COUNT 3.4 x10^3/uL (4.8-10.8)
[2021-10-24 14:57] LABS: CALCIUM 8.7 mg/dL (8.5-10.3); CREATININE 0.7 mg/dL (0.4-1.0); POTASSIUM 3.2 mmol/L (3.5-5.0)
[2021-10-24] MEDS: IBUPROFEN 600 MG TABLET PO STA (15:00)
--- NOTE | 2021-10-24 16:25 | Ultrasound Report ---
PROCEDURE: OB First Trimester w/TV INDICATIONS: 7w, Vag bleed, note covid positive OUTSIDE/PRIOR DATING DATA: Last menstrual period (LMP): 09/04/2021. LMP-based estimated date of delivery (KAYE): 06/24/2022. First dating scan (date and location): 10/24/2021. Estimated date of delivery (KAYE) from first dating scan: 06/24/2022. The below data below was generated using the ultrasound KAYE of 06/24/2022 TECHNIQUE: Real-time scanning was performed of the fetus and maternal pelvic organs, with image documentation. Endovaginal scanning was also performed to better visualize the fetus and maternal ovaries. COMPARISON: None FINDINGS: Embryo: There is an intrauterine gestational sac measuring approximately 0.58 cm in size and correla jessica with approximately 5 weeks and 2 days estimated gestational age. No pole is identified. No yolk sac is seen. No evidence for perigestational hemorrhage. Heart rate: No cardiac activity visualized at this time. Measurement variability in dating: +/- 4 weeks by LMP, +/- 7 days by mean sac diameter (use before 6 weeks gestation if crown-rump length not able to be measured), +/- 5 days by crown-rump length (6-12 weeks gestation). Maternal organs: Ovaries demonstrate presence of a right corpus luteal cyst measuring 2.0 cm in size . Incidental note of uterine fibroids. One measures approximately 0.8 x 0.6 x 0.7 cm and the second m easures approximately 0.8 x 0.6 x 0.8 cm.. IMPRESSION: 1. Single intrauterine gestation visualized with estimated sonographic gestational age of approximate ly 5 weeks and 2 days. No pole, yolk sac, or cardiac activity identified this time. Other awan, no acute sonographic abnormalities identified on today's examination. 2. Recommend continued close clinical surveillance with serial quantitative hCG measurements to docum ent expected progression of . A follow-up ultrasound in 14 days is recommended to document e xpected progression as well as confirmation of cardiac activity. Reviewed by: Timothy West MD on 10/24/2021 4:24 PM PDT Approved by: Timothy West MD on 10/24/2021 4:24 PM PDT Station ID: [id number]
== END 2021-10-24 16:01 | disposition home or self-care (01) ==
LOC: ED 14:07
DX: O20.9 Hemorrhage in early pregnancy, unspecified (principal); O98.511 Other viral diseases complicating pregnancy, first trimester; Z3A.01 Less than 8 weeks gestation of pregnancy
CPT/HCPCS: 36415; 76801; 76817; 80048; 84702; 85025; 99282; 99284; A9270

== ENCOUNTER 2021-10-26 15:09 | Outpatient (CLI) | payer OTHER | END 2021-10-26 15:10 | disposition home or self-care (01) | LOC: LAB 15:09 | PROVIDERS: ATTEND Obstetrics & Gynecology | DX: O20.9 Hemorrhage in early pregnancy, unspecified (principal) | CPT/HCPCS: 36415; 84702 ==

== ENCOUNTER 2022-02-27 16:38 | Outpatient (CLI) | payer OTHER | END 2022-02-27 16:39 | disposition home or self-care (01) | LOC: LAB 16:38 | PROVIDERS: ATTEND Physician Assistant | DX: O03.9 Complete or unspecified spontaneous abortion without complication (principal) | CPT/HCPCS: 36415; 84702 ==

== ENCOUNTER 2023-01-22 22:15 | Emergency (ER) | payer OTHER ==
[2023-01-22 22:50] LABS: BILIRUBIN,URINE NEGATIVE (NEGATIVE); GLUCOSE, URINE (UA) NEGATIVE (NEGATIVE); KETONES,URINE (UA) NEGATIVE (NEGATIVE); LEUKOCYTE ESTERASE, URINE NEGATIVE (NEGATIVE); NITRITE,URINE NEGATIVE (NEGATIVE); OCCULT BLOOD,URINE NEGATIVE (NEGATIVE); PROTEIN,URINE NEGATIVE (NEGATIVE); UROBILINOGEN,URINE 0.2 (NORMAL) E.U./dL (NORMAL)
[2023-01-22 22:51] LABS: CLARITY,URINE CLEAR (CLEAR)
--- NOTE | 2023-01-22 22:56 | ED Physician Documentation ---
PD HPI ABD PAIN - Stated complaint Stated Complaint: FEMALE - Chief complaint Chief Complaint: Abd Pain - History obtained from History obtained from: Patient, Family - Additional information Additional information: Patient comes to the emergency department with chief complaint of right lower quadrant/pelvic pain and positive test. She has a complicated history of polycystic ovarian syndrome with an ectopic back in 2012. She has had 1 that has resulted in a live in 2018. She has had 2 miscarriages in the past year including 1 about 6 weeks ago. She states she does not always have regular periods but thinks that she would be about 5 or 6 weeks along now. The patient states that she has been noticing pulses of pain in her right pelvis/lower quadrant and that it feels similar to when she had her ectopic before. The patient states she is not currently having any abdominal pain She took 2 test today and they were instantly positive, she states. No other complaints at this time. She denies vaginal bleeding. She is otherwise feeling well. She sees Dr. Raymond at the women[facility] here on campus. 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(s) : None HEENT: None Psych: None Musculoskeletal: None Derm: None - Past Surgical History Past Surgical History: Yes General: Appendectomy /SHIPWRIGHT APPRENTICE: Other - Present Medications Home Medications: Ambulatory Orders Medication Instructions Recorded Confirmed Pnv No.95/Ferrous Fum/Folic AC 1 tab PO DAILY PM 08/23/21 08/23/21 [ Tablet] - Allergies Allergies/Adverse Reactions: Allergies Allergy/AdvReac Type Severity Reaction Status Date / Time No Known Drug Allergies Allergy Verified 02/19/22 21:30 - Social History Does the pt smoke?: No Smoking Status: Never smoker Does the pt drink ETOH?: No Does the pt have substance abuse?: Yes - Immunizations Immunizations are current?: No Immunizations: Other immun not current - POLST Patient has POLST: No PD ED PE NORMAL - Vitals Vital signs reviewed: Yes - General General: Alert and oriented X 3, No acute distress, Well developed/nourished - HEENT HEENT: Atraumatic, PERRL, EOMI, Moist mucous membranes - Neck Neck: Supple, no meningeal sign - Cardiac Cardiac: RRR, No murmur - Respiratory Respiratory: No respiratory distress, Clear bilaterally - Abdomen Abdomen: Soft, Non tender, Non distended - Derm Derm: Warm and dry - Extremities Extremities: No deformity - Neuro Neuro: Alert and oriented X 3 - Psych Psych: Normal mood, Normal affect Results - Vitals Vitals: Vital Signs - 24 hr 01/22/23 01/23/23 22:22 00:35 Temperature 36.9 C Heart Rate 79 62 Respiratory 18 16 Rate Blood Pressure 127/86 H 131/85 H O2 Saturation 99 100 Oxygen O2 Source Room air - Labs Labs: Laboratory Tests 01/22/23 01/22/23 22:35 22:59 Beta HCG, Quant 672.2 Urine Color YELLOW Urine Clarity CLEAR Urine pH 5.0 Ur Specific [place] 1.025 Urine Protein NEGATIVE Urine Glucose (UA) NEGATIVE Urine Ketones NEGATIVE Urine Occult Blood NEGATIVE Urine Nitrite NEGATIVE Urine Bilirubin NEGATIVE Urine Urobilinogen 0.2 (NORMAL) Ur Leukocyte Esterase NEGATIVE Ur Microscopic Review NOT INDICATED Urine Culture Comments NOT INDICATED - Rads (name of study) OB ultrasound Relevant Findings:: Final report received, See rad report (No IUP. No ectopic. Corpus luteum cyst. Right fallopian tube absent.) PD Medical Decision Making - ED course Complexity details: reviewed results, re-evaluated patient, considered diffe rential, d/w patient ED course: The patient was worked up with quantitative hCG, urinalysis, and ultimately, an OB ultrasound. The ultrasound did not demonstrate a visible anywhere. The patient's hCG was 672. I did discuss with the patient that it is way too early to be able to see anything on ultrasound, and that given that the patient's right fallopian tube is absent, and ectopic on the right would be exceedingly unlikely, anyway. We have discussed the need for follow-up with the patient's OB for serial hCG levels and for repeat ultrasound in a week. I have advised her to call Dr. Raymond' office first thing tomorrow morning. We have discussed the usual indications for return. Departure - Departure Disposition: 01 Home, Self Care Clinical Impression: Early stage of Abdominal pain Qualifiers: Abdominal location: right lower quadrant Qualified Code(s): R10.31 - Right lower quadrant pain Condition: Stable Instructions: ED Abdominal Pain Rule Out Ectopic, ED Pelvic Pain UKO Comments: Your hormone level is 672. This is very low and indicates a that has not developed much yet. It is not clear whether this is a peak level that is coming down or whether it is very early that is just getting off the ground. At this point in time, there is no evidence of either an ectopic or an intrauterine . As such, you will need to have repeat hormone levels and repeat ultrasound performed to determine what is going on. It is advisable that you call Dr. Raymond' office first thing tomorrow morning to make an appointment plan for this. If you begin having severe pain and bleeding, you should return to the emergency department. Forms: PCP List Discharge Date/Time: 01/23/23 00:36
[2023-01-23 00:36] VITALS: BP 131/85
--- NOTE | 2023-01-23 02:13 | Ultrasound Report ---
PROCEDURE: OB First Trimester w/TV INDICATIONS: preg/pain/h/o ectopic feels same OUTSIDE/PRIOR DATING DATA: Last menstrual period (LMP): Unsure. TECHNIQUE: Real-time scanning was performed of the fetus and maternal pelvic organs, with image documentation. Endovaginal scanning was also performed to better visualize the fetus and maternal ovaries. COMPARISON: None from current . FINDINGS: Embryo: There is a hypoechoic structure within the left myometrium of the uterus measuring up to 1.0 cm. Elsewhere, no definite gestational sac identified. Maternal organs: Ovaries appear within normal size limits. There is a cyst in the left ovary measurin g up to 2.9 cm with peripheral vascularity and color Doppler interrogation suggestive of a corpus lut eum. No adnexal masses identified. IMPRESSION: 1. No definite intrauterine . 2. Left ovarian cyst suggestive of a corpus luteum. No adnexal masses. An ectopic cannot be excluded.Recommend continued clinical follow-up and repeat ultrasound if indicated. Reviewed by: Ministerio Chawla MD on 01/23/2023 2:11 AM PDT Approved by: Ministerio Chawla MD on 01/23/2023 2:11 AM PDT Station ID: [id number]
== END 2023-01-23 00:36 | disposition home or self-care (01) ==
LOC: ED 22:15
DX: O99.891 Other specified diseases and conditions complicating pregnancy (principal); R10.31 Right lower quadrant pain; Z3A.00 Weeks of gestation of pregnancy not specified
CPT/HCPCS: 36415; 81001; 81003; 84702; 87086; 99283; 99284

== ENCOUNTER 2023-02-18 08:00 | Outpatient (CLI) | payer OTHER ==
[2023-02-18 16:23] LABS: BILIRUBIN,URINE NEGATIVE (NEGATIVE); GLUCOSE, URINE (UA) NEGATIVE (NEGATIVE); KETONES,URINE (UA) NEGATIVE (NEGATIVE); LEUKOCYTE ESTERASE, URINE NEGATIVE (NEGATIVE); NITRITE,URINE NEGATIVE (NEGATIVE); OCCULT BLOOD,URINE NEGATIVE (NEGATIVE); PH,URINE 5.5 PH (5.0-7.5); PROTEIN,URINE NEGATIVE (NEGATIVE); UROBILINOGEN,URINE 0.2 (NORMAL) E.U./dL (NORMAL)
[2023-02-18 16:26] LABS: CLARITY,URINE CLEAR (CLEAR)
[2023-02-18 16:52] LABS: RBC,URINE 0-5 /HPF (0-5); WBC,URINE 0-3 /HPF (0-5)
[2023-02-18 16:53] LABS: BACTERIA,URINE None Seen /HPF (None Seen); SQUAMOUS EPITHELIAL CELL,UR FEW Squamous (<= Few)
== END 2023-02-18 23:59 | disposition home or self-care (01) ==
LOC: LAB.WC 08:00
PROVIDERS: ATTEND Obstetrics & Gynecology
DX: O09.90 Supervision of high risk pregnancy, unspecified, unspecified trimester (principal)
CPT/HCPCS: 81001; 87086

== ENCOUNTER 2023-02-18 16:20 | Outpatient (CLI) | payer OTHER ==
[2023-02-18 16:41] LABS: BASOPHILS # (AUTO) 0.1 10^3/uL (0.0-0.1); BASOPHILS % (AUTO) 0.5 %; EOSINOPHILS # (AUTO) 0.1 10^3/uL (0.0-0.7); EOSINOPHILS % (AUTO) 1.2 %; HCT - HEMATOCRIT 35.1 % (37.0-47.0); HGB - HEMOGLOBIN 11.9 g/dL (12.0-16.0); LYMPHOCYTES # (AUTO) 1.6 10^3/uL (1.5-3.5); LYMPHOCYTES % (AUTO) 13.8 %; MEAN CORPUSCULAR HEMOGLOBIN 32.5 pg (27.0-31.0); MEAN CORPUSCULAR HGB CONC 33.9 g/dL (32.0-36.0); MEAN CORPUSCULAR VOLUME 95.9 fL (81.0-99.0); MEAN PLATELET VOLUME 10.3 fL (7.9-10.8); MONOCYTES # (AUTO) 0.5 10^3/uL (0.0-1.0); MONOCYTES % (AUTO) 4.4 %; NEUTROPHILS # (AUTO) 9.3 10^3/uL (1.5-6.6); NEUTROPHILS % (AUTO) 79.8 %; PLT - PLATELET COUNT 267 10^3/uL (130-450); RED BLOOD COUNT 3.66 10^6/uL (4.20-5.40); RED CELL DISTRIBUTION WIDTH 12.4 % (12.0-15.0); WHITE BLOOD COUNT 11.7 x10^3/uL (4.8-10.8)
[2023-02-19 03:09] LABS: HCV AB Non Reactive (Non Reactive)
[2023-02-19 05:12] LABS: HIV SCREEN 4TH GENERATION Non Reactive (Non Reactive)
[2023-02-19 06:11] LABS: HBsAG SCREEN Negative (Negative); RPR Non Reactive (Non Reactive)
[2023-02-19 09:09] LABS: VARICELLA-ZOSTER AB IGG 263 index (Immune >165)
== END 2023-02-18 16:21 | disposition home or self-care (01) ==
LOC: LAB 16:20
PROVIDERS: ATTEND Obstetrics & Gynecology
DX: O09.90 Supervision of high risk pregnancy, unspecified, unspecified trimester (principal); Z36.89 Encounter for other specified antenatal screening
CPT/HCPCS: 36415; 81001; 85025; 86592; 86762; 86787; 86803; 86850; 86900; 86901; 87086; 87340; 87389

== ENCOUNTER 2023-02-19 08:00 | Outpatient (CLI) | payer OTHER ==
[2023-02-19 20:51] LABS: CHLAMYDIA TRACHOMATIS DNA NEGATIVE (NEGATIVE); NEISSERIA GONORRHOEAE DNA NEGATIVE (NEGATIVE); TRICHOMONAS VAGINALIS DNA NEGATIVE (NEGATIVE)
== END 2023-02-19 23:59 | disposition home or self-care (01) ==
LOC: LAB.WC 08:00
PROVIDERS: ATTEND Obstetrics & Gynecology
DX: O09.90 Supervision of high risk pregnancy, unspecified, unspecified trimester (principal)
CPT/HCPCS: 87491; 87591; 87661

== ENCOUNTER 2023-02-19 15:22 | Outpatient (CLI) | payer OTHER | END 2023-02-19 15:23 | disposition home or self-care (01) | LOC: LAB 15:22 | PROVIDERS: ATTEND Obstetrics & Gynecology | DX: O09.521 Supervision of elderly multigravida, first trimester (principal) ==

== ENCOUNTER 2023-02-23 10:00 | Outpatient (CLI) | payer OTHER ==
--- NOTE | 2023-02-23 23:13 | Ultrasound Report ---
PROCEDURE: OB First Trimester INDICATIONS: POSITIVE TEST OUTSIDE/PRIOR DATING DATA: Last menstrual period (LMP): 12/16/2022. LMP-based estimated date of delivery (KAYE): 09/22/2023. First dating scan (date and location): 02/23/2023. Estimated date of delivery (KAYE) from first dating scan: 09/27/2023. TECHNIQUE: Real-time scanning was performed of the fetus and maternal pelvic organs, with image documentation. COMPARISON: 01/22/2023 FINDINGS: Embryo: There is an intrauterine gestational sac seen, with a pole present, which measures 2.4 cm, which corresponds to an estimated gestational age of 90 weeks 1 day. cardiac activity is s een, with a measured heart rate of 178 bpm. No significant perigestational/subchorionic hemorrhage can be seen. A yolk sac is seen. Measurement variability in dating: +/- 4 weeks by LMP, +/- 7 days by mean sac diameter (use before 6 weeks gestation if crown-rump length not able to be measured), +/- 5 days by crown-rump length (6-12 weeks gestation). Maternal organs: Ovaries appear within normal limits, with note made of a left corpus luteum. IMPRESSION: Single live intrauterine . No significant discrepancy is found between the estimated gestational age based upon these images and the estimated gestational age based upon the given date of the last menstrual period. Reviewed by: Charan Bolaños MD on 02/23/2023 10:12 PM [facility] Approved by: Charan Bolaños MD on 02/23/2023 10:12 PM [facility] Station ID: [id number]
== END 2023-02-23 10:01 | disposition home or self-care (01) ==
LOC: DI 10:00
PROVIDERS: ATTEND Obstetrics & Gynecology
DX: O09.90 Supervision of high risk pregnancy, unspecified, unspecified trimester (principal); Z3A.00 Weeks of gestation of pregnancy not specified

== ENCOUNTER 2023-04-22 12:06 | Outpatient (CLI) | payer OTHER ==
[2023-04-24 21:07] LABS: AFP MOM 1.22 (.); AFP VALUE 45.1 ng/mL (.); GEST. AGE ON COLLECTION DATE 18.1 weeks (.); GESTAT. AGE METHOD EDD (.); INSULIN DEP DIABETES No (.); MATERNAL AGE AT EDD 35.6 yr (.); MULTIPLE GESTATION No (.); OPEN SPINA BIFIDA RISK 1 IN 6110 (.); RACE Caucasian (.); RESULTS Report (.); TEST RESULTS *Screen Negative* (.); WEIGHT 203 lbs (.)
== END 2023-04-22 12:07 | disposition home or self-care (01) ==
LOC: LAB 12:06
PROVIDERS: ATTEND Obstetrics & Gynecology
DX: O09.521 Supervision of elderly multigravida, first trimester (principal)
CPT/HCPCS: 36415; 82105

== ENCOUNTER 2023-04-29 19:21 | Outpatient (CLI) | payer OTHER ==
[2023-05-02 22:07] LABS: AFP MOM 1.28 (.); AFP VALUE 53.9 ng/mL (.); DIA MOM 1.69 (.); DIA VALUE 230.42 pg/mL (.); DSR (BY AGE) 1 IN 261 (.); DSR (SECOND TRIMESTER) 1 IN 449 (.); GEST. AGE ON COLLECTION DATE 19.1 WEEKS (.); HCG MOM 1.64 (.); MATERNAL AGE AT EDD 35.6 yr (.); MULTIPLE GESTATION No (.); OPEN SPINA BIFIDA RISK 1 IN 5096 (.); RACE Caucasian (.); RESULTS Report (.); TEST RESULTS *Screen Negative* (.); TRISOMY 18 RISK Not increased (.); UE3 MOM 0.83 (.); UE3 VALUE 1.38 ng/mL (.); WEIGHT 205 lbs (.)
== END 2023-04-29 19:22 | disposition home or self-care (01) ==
LOC: RT 19:21
PROVIDERS: ATTEND Obstetrics & Gynecology
DX: O09.522 Supervision of elderly multigravida, second trimester (principal); O99.891 Other specified diseases and conditions complicating pregnancy; R00.2 Palpitations
CPT/HCPCS: 81511; 93005

== ENCOUNTER 2023-05-07 13:59 | Outpatient (CLI) | payer OTHER ==
--- NOTE | 2023-05-07 20:19 | Ultrasound Report ---
PROCEDURE: OB Detailed Eval INDICATIONS: SUPERVISION OF ELDERLY MULTIGRAVIDA OUTSIDE/PRIOR DATING DATA: Last menstrual period (LMP): 12/16/2022. LMP-based estimated date of delivery (KAYE): 09/22/2023. First dating scan (date and location): 02/23/2023. Estimated date of delivery (KAYE) from first dating scan: 09/27/2023. The below data below was generated using the clinical KAYE of 09/22/2023 TECHNIQUE: Ultrasound of the gravid uterus was performed and recorded. COMPARISON: 02/23/2023 FINDINGS: General: A single live intrauterine gestation is present. Presentation: Breech Placenta: Placental position is posterior without previa. Amniotic fluid index: 12.4 cm, 27th percentile for gestational age. heart rate: 162 beats per minute. Maternal cervical canal: 5.4 cm long; normal length is 2.5 cm or more. biometrics: Biparietal diameter: 4.5 cm, 19 week 5 day, 26% Head circumference: 17.5 cm, 20 week 0 day, 30% Abdominal circumference: 14.8 cm, 20 week 0 day, 36% Femur length: 3.2 cm, 19 week 6 day, 29% Estimated gestational age by working dates: 20 week 2 day Composite gestational age by current ultrasound: 19 week 6 day Estimated weight and percentile: 325 g, 29% Measurement variability in biometric dating: +/- 10 days from 12-20 weeks gestation, +/- 2 weeks from 20-30 weeks gestation, +/- 3 weeks at 30 weeks gestation or more. Anatomic survey: Neuro: Ventricles are non-dilated at less than 10 mm. Cisterna magna is normal at 3-11 mm. Cerebel lum is normal in size and morphology. Nuchal skin fold: Normal at less than 6 mm between 14-20 weeks gestational age. Face: Nose and lips, facial profile are normal. Spine: No evidence for spina bifida. Heart: Not well visualized Diaphragm: Diaphragm is intact. Stomach: Left-sided stomach is present. Kidneys: No hydronephrosis. Normal is less than 5 mm in 2nd trimester, less than 7 mm in 3rd trimester. Cord: 3-vessel cord has orthotopic insertion. Bladder: Normal in size. Extremities: All 4 extremities identified. Other: Not applicable. IMPRESSION: Single live intrauterine consistent with 19 week 6 day with gestation by current ultrasound Cardiac ventricular outflow tracts not well visualized. Remainder of the anatomic survey unrema rkable. Reviewed by: Ebenezer Luna MD on 05/07/2023 7:18 PM [facility] Approved by: Ebenezer Luna MD on 05/07/2023 7:18 PM [facility] Station ID: [id number]
== END 2023-05-07 14:00 | disposition home or self-care (01) ==
LOC: DI 13:59
PROVIDERS: ATTEND Obstetrics & Gynecology
DX: O09.522 Supervision of elderly multigravida, second trimester (principal); Z3A.19 19 weeks gestation of pregnancy

== ENCOUNTER 2023-05-21 14:07 | Outpatient (CLI) | payer OTHER ==
--- NOTE | 2023-05-21 20:11 | Ultrasound Report ---
PROCEDURE: OB F/U or Repeat INDICATIONS: SUPERVISION OF OUTSIDE/PRIOR DATING DATA: Last menstrual period (LMP): 12/16/2022. LMP-based estimated date of delivery (KAYE): 09/22/2023. First dating scan (date and location): 02/23/2023. Estimated date of delivery (KAYE) from first dating scan: 09/27/2023. The below data below was generated using the clinical KAYE of 09/22/2023 TECHNIQUE: Real-time scanning was performed of the fetus, with image documentation. Endovaginal scanning: Not performed. COMPARISON: OB ultrasound 05/07/2023. FINDINGS: General: A single living intrauterine gestation is present. Presentation: Cephalic Placenta: Placental position is posterior, without previa. Amniotic fluid index: 15.8 cm, within normal limits for gestational age. Largest pocket 5.1 cm. heart rate: 145 beats per minute. Maternal cervical canal: 4.8 cm long; normal length is 2.5 cm or more. Estimated gestational age from initial scan: 22 weeks 2 days Other: RVOT, LVOT, 4 chamber heart views are within normal limits. IMPRESSION: 1. [place] living intrauterine at 22 weeks 2 days based on dating. 2. Normal placenta and amniotic fluid. 3. heart is now seen and is within normal limits. Reviewed by: Dominick Brenner MD on 05/21/2023 8:09 PM PST Approved by: Dominick Brenner MD on 05/21/2023 8:09 PM PST Station ID: [id number]
== END 2023-05-21 14:08 | disposition home or self-care (01) ==
LOC: DI 14:07
PROVIDERS: ATTEND Obstetrics & Gynecology
DX: O09.522 Supervision of elderly multigravida, second trimester (principal); Z3A.22 22 weeks gestation of pregnancy

== ENCOUNTER 2023-06-18 11:04 | Outpatient (CLI) | payer OTHER ==
[2023-06-18 12:28] LABS: HCT - HEMATOCRIT 32.1 % (37.0-47.0); HGB - HEMOGLOBIN 10.6 g/dL (12.0-16.0); MEAN CORPUSCULAR HEMOGLOBIN 32.3 pg (27.0-31.0); MEAN CORPUSCULAR VOLUME 97.9 fL (81.0-99.0); MEAN PLATELET VOLUME 9.8 fL (7.9-10.8); RED BLOOD COUNT 3.28 10^6/uL (4.20-5.40); RED CELL DISTRIBUTION WIDTH 12.9 % (12.0-15.0); WHITE BLOOD COUNT 13.7 x10^3/uL (4.8-10.8)
[2023-06-18 12:45] LABS: CREATININE,URINE 76.6 mg/dL; PROTEIN/CREATININE RATIO,URINE 0.1 (<=0.2)
== END 2023-06-18 11:05 | disposition home or self-care (01) ==
LOC: LAB 11:04
PROVIDERS: ATTEND Obstetrics & Gynecology
DX: O09.522 Supervision of elderly multigravida, second trimester (principal); O99.282 Endocrine, nutritional and metabolic diseases complicating pregnancy, second trimester; E28.2 Polycystic ovarian syndrome
CPT/HCPCS: 36415; 82570; 82950; 84156; 85027; 86850

== ENCOUNTER 2023-06-28 08:21 | Outpatient (CLI) | payer OTHER ==
[2023-06-28 08:39] LABS: HCT - HEMATOCRIT 31.1 % (37.0-47.0); HGB - HEMOGLOBIN 10.2 g/dL (12.0-16.0); MEAN CORPUSCULAR HEMOGLOBIN 32.8 pg (27.0-31.0); MEAN CORPUSCULAR HGB CONC 32.8 g/dL (32.0-36.0); MEAN PLATELET VOLUME 10.1 fL (7.9-10.8); RED BLOOD COUNT 3.11 10^6/uL (4.20-5.40); RED CELL DISTRIBUTION WIDTH 13.2 % (12.0-15.0); WHITE BLOOD COUNT 14.1 x10^3/uL (4.8-10.8)
[2023-06-28 08:51] LABS: GTT GLUCOSE,FASTING 90 mg/dL (74-109)
== END 2023-06-28 08:22 | disposition home or self-care (01) ==
LOC: LAB 08:21
PROVIDERS: ATTEND Nurse Practitioner
DX: O09.522 Supervision of elderly multigravida, second trimester (principal); O99.810 Abnormal glucose complicating pregnancy
CPT/HCPCS: 36415; 82728; 82951; 82952; 85027

== ENCOUNTER 2023-07-10 11:23 | Outpatient (CLI) | payer OTHER ==
[2023-07-10 12:06] LABS: ALBUMIN 3.8 g/dL (3.2-5.5); ALBUMIN/GLOBULIN RATIO 1.2 (1.0-2.2); BILIRUBIN,TOTAL 0.4 mg/dL (0.2-1.0); CALCIUM 9.6 mg/dL (8.5-10.3); CREATININE 0.5 mg/dL (0.6-1.3); POTASSIUM 3.8 mmol/L (3.5-4.5); TOTAL PROTEIN 6.9 g/dL (6.4-8.9)
[2023-07-10 12:11] LABS: HCT - HEMATOCRIT 32.6 % (37.0-47.0); HGB - HEMOGLOBIN 10.8 g/dL (12.0-16.0); MEAN CORPUSCULAR HEMOGLOBIN 33.2 pg (27.0-31.0); MEAN CORPUSCULAR HGB CONC 33.1 g/dL (32.0-36.0); MEAN CORPUSCULAR VOLUME 100.3 fL (81.0-99.0); MEAN PLATELET VOLUME 10.4 fL (7.9-10.8); RED BLOOD COUNT 3.25 10^6/uL (4.20-5.40); RED CELL DISTRIBUTION WIDTH 12.9 % (12.0-15.0); WHITE BLOOD COUNT 12.5 x10^3/uL (4.8-10.8)
[2023-07-10 12:36] LABS: CREATININE,URINE 203.6 mg/dL; PROTEIN/CREATININE RATIO,URINE 0.1 (<=0.2)
== END 2023-07-10 11:24 | disposition home or self-care (01) ==
LOC: LAB 11:23
PROVIDERS: ATTEND Obstetrics & Gynecology
DX: O09.522 Supervision of elderly multigravida, second trimester (principal); O99.891 Other specified diseases and conditions complicating pregnancy; R03.0 Elevated blood-pressure reading, without diagnosis of hypertension
CPT/HCPCS: 36415; 80053; 82570; 84156; 85027

== ENCOUNTER 2023-08-14 15:48 | Outpatient (CLI) | payer OTHER ==
[2023-08-14 15:59] LABS: HCT - HEMATOCRIT 30.2 % (37.0-47.0); HGB - HEMOGLOBIN 10.1 g/dL (12.0-16.0); MEAN CORPUSCULAR HEMOGLOBIN 33.6 pg (27.0-31.0); MEAN CORPUSCULAR HGB CONC 33.4 g/dL (32.0-36.0); MEAN CORPUSCULAR VOLUME 100.3 fL (81.0-99.0); MEAN PLATELET VOLUME 9.5 fL (7.9-10.8); RED BLOOD COUNT 3.01 10^6/uL (4.20-5.40); RED CELL DISTRIBUTION WIDTH 13.3 % (12.0-15.0); WHITE BLOOD COUNT 13.4 x10^3/uL (4.8-10.8)
[2023-08-14 16:17] LABS: ALBUMIN 3.4 g/dL (3.2-5.5); ALBUMIN/GLOBULIN RATIO 1.4 (1.0-2.2); BILIRUBIN,TOTAL 0.4 mg/dL (0.2-1.0); CALCIUM 8.7 mg/dL (8.5-10.3); CREATININE 0.5 mg/dL (0.6-1.3); POTASSIUM 3.5 mmol/L (3.5-4.5); TOTAL PROTEIN 5.9 g/dL (6.4-8.9)
[2023-08-14 16:18] LABS: CREATININE,URINE 78.2 mg/dL; PROTEIN/CREATININE RATIO,URINE 0.2 (<=0.2)
== END 2023-08-14 15:49 | disposition home or self-care (01) ==
LOC: LAB 15:48
PROVIDERS: ATTEND Obstetrics & Gynecology
DX: R03.0 Elevated blood-pressure reading, without diagnosis of hypertension (principal)
CPT/HCPCS: 36415; 80053; 82570; 84156; 85027

== ENCOUNTER 2023-08-15 14:44 | Outpatient (CLI) | payer OTHER ==
[2023-08-15 15:17] VITALS: O2SAT 98
[2023-08-15 16:12] VITALS: BP 136/90
--- NOTE | 2023-08-15 16:52 | PROCEDURE REPORT ---
- HPI Current EDU 09/22/23 Gestation 34 Weeks and 4 Days 9 Para 2 Vital Signs Temperature 98.2 F 08/15/23 14:53 Temperature 98.2 F 08/15/23 14:53 Heart Rate 103 H 08/15/23 15:16 Respiratory Rate 15 08/15/23 15:16 Blood Pressure 136/90 H 08/15/23 16:08 O2 Saturation 98 08/15/23 15:16 If not protocol: Oxygen Flow, liters/minute - Results and Plan Plan: Patient is a 33-year-old -0-6-2 at 34 weeks 4 days gestation here for NST. NST Performed 08/15/2023 NST Read 08/15/2023 FHT: 140 bpm baseline, moderate variability, accelerations present, no decelerations. Reactive NST Mcloud: Quiescent Diagnosis 34 weeks gestation Gestational hypertension Continue with scheduled NST.
== END 2023-08-15 16:40 | disposition home or self-care (01) ==
LOC: WFO 14:44 → FBP 14:45 → WFO 16:40
PROVIDERS: ATTEND Obstetrics & Gynecology
DX: O13.3 Gestational [pregnancy-induced] hypertension without significant proteinuria, third trimester (principal); Z3A.34 34 weeks gestation of pregnancy
CPT/HCPCS: 59025

== ENCOUNTER 2023-08-19 15:30 | Outpatient (CLI) | payer OTHER ==
[2023-08-19 15:54] VITALS: BP 132/85
--- NOTE | 2023-08-19 16:36 | PROCEDURE REPORT ---
- HPI Current EDU 09/22/23 Gestation 35 Weeks and 1 Days 9 Para 2 Vital Signs Temperature 98.2 F 08/19/23 15:44 Heart Rate 106 H 08/19/23 15:44 Respiratory Rate 18 08/19/23 15:44 Blood Pressure 132/85 H 08/19/23 15:44 Temperature 98.2 F 08/19/23 15:44 Heart Rate 106 H 08/19/23 15:44 Respiratory Rate 18 08/19/23 15:44 Blood Pressure 132/85 H 08/19/23 15:44 O2 Saturation If not protocol: Oxygen Flow, liters/minute - NST Procedure NST Procedure Start Date 08/19/23 Start Time 15:40 Stop Time 16:15 Vibroacoustic Stimulation Used No Patient States Movement Yes - Results and Plan Plan: NST Performed 08/19/23 NST Read 08/19/23 FHT: 135 bpm baseline, moderate variability, accelerations present, no decelerations. Reactive NST Diagnosis 35 weeks gestation Gestational hypertension Continue scheduled care.
== END 2023-08-19 16:30 | disposition home or self-care (01) ==
LOC: WFO 15:30 → FBP 15:41 → WFO 16:30
PROVIDERS: ATTEND Obstetrics & Gynecology
DX: O13.3 Gestational [pregnancy-induced] hypertension without significant proteinuria, third trimester (principal); Z3A.35 35 weeks gestation of pregnancy
CPT/HCPCS: 59025

== ENCOUNTER 2023-08-26 15:05 | Outpatient (CLI) | payer OTHER ==
[2023-08-26 15:29] VITALS: BP 134/84
[2023-08-26 16:26] VITALS: O2SAT 98
--- NOTE | 2023-08-28 20:51 | PROCEDURE REPORT ---
- HPI Diagnosis/Indication for NST: Gestational Hypertension Current EDU 09/22/23 Gestation 36 Weeks and 1 Days 9 Para 2 with IUGR. Vital Signs Temperature 98.2 F 08/26/23 15:16 Heart Rate 91 08/26/23 15:16 Respiratory Rate 16 08/26/23 15:16 Blood Pressure 134/84 H 08/26/23 15:16 O2 Saturation 98 08/26/23 15:16 Temperature 98.2 F 08/26/23 15:50 Heart Rate 87 08/26/23 15:50 Respiratory Rate 16 08/26/23 15:50 Blood Pressure 134/84 H 08/26/23 15:50 O2 Saturation 98 08/26/23 15:16 If not protocol: Oxygen Flow, liters/minute - NST Procedure NST Procedure Start Date 08/26/23 Start Time 15:13 Stop Time 15:45 Vibroacoustic Stimulation Used No Patient States Movement Yes NST reviewed. baseline 135. + acels and no decels. NST reactive. continue care as scheduled.
== END 2023-08-26 16:00 | disposition home or self-care (01) ==
LOC: WFO 15:05 → FBP 15:06 → WFO 16:00
PROVIDERS: ATTEND Obstetrics & Gynecology
DX: O13.3 Gestational [pregnancy-induced] hypertension without significant proteinuria, third trimester (principal); Z3A.36 36 weeks gestation of pregnancy
CPT/HCPCS: 59025

== ENCOUNTER 2023-08-26 16:02 | Outpatient (CLI) | payer OTHER ==
--- NOTE | 2023-08-27 17:55 | Ultrasound Report ---
PROCEDURE: OB Limited INDICATIONS: GESTATIONAL HYPERTENSION OUTSIDE/PRIOR DATING DATA: Last menstrual period (LMP): 12/16/2022. LMP-based estimated date of delivery (KAYE): 09/22/2023. First dating scan (date and location): 02/23/2023, [facility]. Estimated date of delivery (KAYE) from first dating scan: 09/27/2023 TECHNIQUE: Real-time scanning was performed of the fetus, with image documentation. Endovaginal scanning: Not performed COMPARISON: OB ultrasound dated 05/21/2023 FINDINGS: A single living intrauterine gestation is present. Presentation: Vertex Placenta: Placental position is posterior, without previa. Amniotic fluid index: 14.3 cm. heart rate: 127 beats per minutes. Estimated gestational age from initial scan: 36 weeks, 1 day. IMPRESSION: Single live intrauterine gestation in vertex position as above. Reviewed by: Sandra Rudolph MD on 08/27/2023 5:54 PM PST Approved by: Sandra Rudolph MD on 08/27/2023 5:54 PM PST Station ID: [id number]
== END 2023-08-26 16:03 | disposition home or self-care (01) ==
LOC: DI 16:02
PROVIDERS: ATTEND Obstetrics & Gynecology
DX: O13.3 Gestational [pregnancy-induced] hypertension without significant proteinuria, third trimester (principal); Z3A.36 36 weeks gestation of pregnancy

== ENCOUNTER 2023-08-28 08:00 | Outpatient (CLI) | payer OTHER | END 2023-08-28 23:59 | disposition home or self-care (01) | LOC: LAB.WC 08:00 | PROVIDERS: ATTEND Obstetrics & Gynecology | DX: Z36.85 Encounter for antenatal screening for Streptococcus B (principal) | CPT/HCPCS: 87081; 87797 ==

== ENCOUNTER 2023-08-29 15:54 | Outpatient (CLI) | payer OTHER ==
[2023-08-29 16:49] VITALS: BP 137/79
--- NOTE | 2023-08-30 14:29 | PROCEDURE REPORT ---
- HPI Current EDU 09/22/23 Gestation 36 Weeks and 4 Days 9 Para 2 Vital Signs Temperature 98.3 F 08/29/23 16:36 Heart Rate 104 H 08/29/23 16:36 Respiratory Rate 16 08/29/23 16:36 Blood Pressure 137/79 H 08/29/23 16:36 Temperature 98.3 F 08/29/23 16:46 Heart Rate 104 H 08/29/23 16:46 Respiratory Rate 16 08/29/23 16:46 Blood Pressure 137/79 H 08/29/23 16:46 O2 Saturation If not protocol: Oxygen Flow, liters/minute - NST Procedure NST Procedure Start Date 08/29/23 Start Time 16:07 Stop Time 17:00 Vibroacoustic Stimulation Used No Patient States Movement Yes - Results and Plan Plan: Patient is a 33-year-old -0-6-2 at 36 weeks 4 days gestation here for NST. NST Performed 08/29/2023 NST Read 08/29/2023 FHT: 130 bpm baseline, moderate variability, accelerations present, no decelerations. Reactive NST Diagnosis 36 weeks gestation Gestational hypertension Continue with scheduled OB care
== END 2023-08-29 17:00 | disposition home or self-care (01) ==
LOC: WFO 15:54 → FBP 15:55 → WFO 17:00
PROVIDERS: ATTEND Obstetrics & Gynecology
DX: O13.3 Gestational [pregnancy-induced] hypertension without significant proteinuria, third trimester (principal); Z3A.36 36 weeks gestation of pregnancy
CPT/HCPCS: 59025

== ENCOUNTER 2023-09-13 18:50 | Observation (INO) | payer OTHER ==
[2023-09-13] MEDS ORDERED: NIFEdipine 10 MG CAPSULE PO PRN (19:13)
[2023-09-13] MEDS ORDERED: hydrALAZINE INJ 20 MG/ML VIAL IVP PRN ×2 (19:13)
[2023-09-13] MEDS ORDERED: SODIUM CHLORIDE FLUSH 0.9% 10 ML SYRINGE IVP PRN (19:13)
[2023-09-13] MEDS ORDERED: LABETALOL 20 MG/4 ML SYRINGE IVP PRN ×3 (19:13)
[2023-09-13] MEDS ORDERED: LACTATED RINGERS 1,000 ML IV SCH (20:00)
[2023-09-13] MEDS ORDERED: SODIUM CHLORIDE FLUSH 0.9% 10 ML SYRINGE IVP SCH (20:00)
[2023-09-13 20:04] LABS: BASOPHILS # (AUTO) 0.1 10^3/uL (0.0-0.1); EOSINOPHILS # (AUTO) 0.2 10^3/uL (0.0-0.7); HCT - HEMATOCRIT 39.3 % (37.0-47.0); HGB - HEMOGLOBIN 12.9 g/dL (12.0-16.0); LYMPHOCYTES % (AUTO) 24.8 %; MEAN CORPUSCULAR HEMOGLOBIN 32.7 pg (27.0-31.0); MEAN CORPUSCULAR HGB CONC 32.8 g/dL (32.0-36.0); MEAN CORPUSCULAR VOLUME 99.7 fL (81.0-99.0); MEAN PLATELET VOLUME 9.8 fL (7.9-10.8); MONOCYTES # (AUTO) 0.6 10^3/uL (0.0-1.0); MONOCYTES % (AUTO) 7.3 %; NEUTROPHILS # (AUTO) 5.1 10^3/uL (1.5-6.6); NEUTROPHILS % (AUTO) 63.6 %; PLT - PLATELET COUNT 370 10^3/uL (130-450); RED BLOOD COUNT 3.94 10^6/uL (4.20-5.40); RED CELL DISTRIBUTION WIDTH 12.3 % (12.0-15.0)
[2023-09-13 20:17] LABS: ALBUMIN 3.8 g/dL (3.2-5.5); ALBUMIN/GLOBULIN RATIO 1.3 (1.0-2.2); BILIRUBIN,TOTAL 0.3 mg/dL (0.2-1.0); CALCIUM 9.2 mg/dL (8.5-10.3); CREATININE 0.6 mg/dL (0.6-1.3); POTASSIUM 3.8 mmol/L (3.5-4.5); TOTAL PROTEIN 6.8 g/dL (6.4-8.9)
[2023-09-13 20:18] LABS: CREATININE,URINE 73.1 mg/dL; PROTEIN/CREATININE RATIO,URINE 0.1 (<=0.2)
--- NOTE | 2023-09-13 21:42 | HISTORY & PHYSICAL EXAMINATION ---
Admit History - Visit Reason Visit Reason: Other (post high bp) - : 9 Parity: 3 Ectopic: 1 : 5 Care: positive: [facility] Risk/History: positive: induced HTN Smoking Status: Never smoker - Other Maternal History Other Maternal History: s/p vaginal delivery on 09/01. Induced for gestational htn. BPs normal during induction and delivery. then baby readmitted for bili lights. And going to see peds every day. stressed. came to pp appt today and bps were quite high 150- 160/95. recommended that she come to [facility] for admission for obs to r/o preeclampsia. Patient presented a few hours later. At the office earlier she had a headache. She says that was mild and is gone now. She was having some chest pain but seems musculo-skelatal. Had same immediately . She is not swollen. No visual changes. Now that she is here, she really just wants to go home. She is not willing to stay. Course LMP: 12/16/2022 KAYE by LMP: 09/22/2023 US:02/23 @ 9.1sk c/w LMP Final KAYE: 09/22/23 Problems: AMA: Started ASA 04/22 Recurrent losses Sciatica 13yo son being evaluated for cardiac / fainting. No episodes. Waiting for holter report, but cleared by [facility]. Gestational hypertension: NST/BPP ordered. Baseline labs normal. Induction of labor scheduled for 37 weeks. Pre- Weight: 180 BMI: 30 Blood type: A+ Antibody: Negative CBC: PLT: 267 HCT: 35.1 HGB : 11.9 RUB: Immune VZV: Immune HBsAg: Negative HepC: NR RPR/AB-EIA: NR HIV: NR PAP:2018 - states WNL GC/CT:neg 02/19 HSV:denies in self and partner Genetic testing: Maternity 21 negative, repeated QUAD:Negative AFP- neg Covid : not vax. declined Flu: Declined FAS: Placenta:Posterior w/o previa Cord:3VC NURIS:Normal EFW:325g 29th%ile 50gm OGCT: 176 3HR: F 90; 1hr- 181 2hr- 155 3hr 140 TDAP: 06/13/23 due to cat bite. Breast Pump: 07/10/2023 3rd trimester : PLT 264 HGB 10.2 HCT 31.1 GBS: Collected 08/28/2023 Delivery plan:09/01/2023 induction of labor for gestational hypertension. Plan for misoprostol x 1-2 doses prior to amniotomy versus oxytocin. Contraception: Partner has testicular cyst? that will be removed and was told this may make him infertle. DIscussed that if only one testicle removed, can still be fertile. PMH PCOS Ectopic Recurrent miscarriage PSH Laparoscopic removal of ectopic D&C Laparoscopic appendectomy Pilar cyst removal [place] teeth removal OB History -0-5-2 1. 11/26/2009, , male 2. 11 weeks, ectopic 3. Early spontaneous 4. 06/11/2018, , male 5. 05/2021, spontaneous 6.Early spontaneous 7. Early spontaneous 8.Early spontaneous SH Denies tobacco, alcohol, drugs Family History Mother: Headaches Sister: Endometriosi, PCOS, uterine rupture Allergies No known drug allergies Medications Loratadine 10 mg daily vitamins Colace as needed Aspirin Physical exam: General: Alert, oriented, no acute distress Head: Normal cephalic atraumatic Eyes: PERRLA, extraocular motions intact. Respiratory: Normal rate of respiration. No accessory muscle use, normal respiratory effort. Cardiovascular: Regular rate and rhythm Abdomen: Gravid, nontender, nondistended Extremities: Normal range of motion Neuro: Oriented x3. Normal movements Psych: Appropriate mood and affect. Normal judgment and insight SVE: 07/20/-3, posterior, medium FHT: 140 beats per baseline, moderate variability, accelerations present, no decelerations. [place]: Quiescent Plan Induction of labor -Cervix unfavorable, but does have 2 prior vaginal deliveries. Will give 1 dose of misoprostol then reevaluate. Anticipate 1-2 doses, then amniotomy versus oxytocin. -Admit to observation, gestational hypertension and admit labs, epidural at patient's request, anticipate if cervix)'s. Gestational hypertension -Mild hypertension currently. - HPI Vital Signs Temperature 98.1 F 09/13/23 19:15 Heart Rate 99 09/13/23 19:15 Respiratory Rate 20 09/13/23 19:15 Blood Pressure 147/90 H 09/13/23 19:15 Temperature 98.1 F 03/15/24 19:15 Heart Rate 75 09/13/23 19:59 Respiratory Rate 20 09/13/23 21:25 Blood Pressure 145/93 H 09/13/23 21:25 O2 Saturation If not protocol: Oxygen Flow, liters/minute - NST Procedure NST Procedure Start Time 16:07 Stop Time 17:00 Meds/Allgy - Home Medications Home Medications: Ambulatory Orders Medication Instructions Recorded Confirmed Pnv No.95/Ferrous Fum/Folic AC 1 tab PO DAILY PM 08/23/21 09/01/23 [ Tablet] Aspirin [[place] Aspirin] 81 mg PO DAILY 09/01/23 09/01/23 Docusate Sodium [Dok] 100 mg PO DAILY PRN 09/01/23 09/01/23 Loratadine [Claritin] 10 mg PO DAILY 09/01/23 09/01/23 Acetaminophen 650 mg PO Q4HR PRN #30 ea 09/03/23 Ibuprofen [Motrin] 600 mg PO Q6H PRN #30 tab 09/03/23 Mecobalamin [B12 Active] 1,000 mcg PO DAILY #365 ea 09/03/23 Labetalol [Trandate] 100 mg PO BID #60 tablet 09/13/23 - Allergies Allergies/Adverse Reactions: Allergies Allergy/AdvReac Type Severity Reaction Status Date / Time No Known Drug Allergies Allergy Verified 02/19/22 21:30 Review of Systems - Constitutional Constitutional: reports: Fatigue - Eyes Eyes: denies: Spots in vision - Cardiovascular Cariovascular: denies: Chest pain - Respiratory Respiratory: denies: Cough - Neurological Neurological: denies: Headache Physical - Abdominal Exam Vital Signs: Temp Pulse Resp BP Pulse Ox O2 Flow Rate 98.1 F 75 20 145/93 H 09/13/23 19:15 09/13/23 19:59 09/13/23 21:25 09/13/23 21:25 Patient is very talkative, somewhat anxious maybe or stressed. Even maybe a bit manic, really just wants to go home. no edema. legs not tender. reflexes normal no clonus. lungs are clear. more bps: 147/90, 128/85, 148/95. Plan for Labor - Plan For Labor I expect patient to be DC'd or transferred within 96 hours.: Yes Plan for Labor: patient had high bp in clinic but does not meet criteria for severe range bps. labs normal. no protein. no headache of significance. will start her on some labetolol and let her go home. she is coming back tomorrow at noon for a weight check for baby. Will check her bp then.
[2023-09-13] MEDS: LABETALOL 100 MG TABLET PO STA (21:44)
--- NOTE | 2023-09-13 22:01 | DISCHARGE SUMMARY ---
Discharge Summary Admit Date: 09/13/23 Discharge Date: 09/13/23 Discharging Provider: Cierra Degroot MD Code Status: Attempt Resuscitation Condition at Discharge: Good Discharge Disposition: 01 Home, Self Care - DIAGNOSES Admission Diagnoses: post hypertension. s/p vaginal delivery 9 days ago. Discharge Diagnoses with Status of Each Condition: condition is stable. does not meet criteria for preeclampsia but bps are high enough that I recommend she start labetolol 100 mg po bid. 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 - HPI History of Present Illness: s/p vaginal delivery 9 days ago. to office today for visit and bp quite high. recommended that she come for observation admission. - ALLERGIES Allergies/Adverse Reactions: Allergies Allergy/AdvReac Type Severity Reaction Status Date / Time No Known Drug Allergies Allergy Verified 02/19/22 21:30 - MEDICATIONS Home Medications: Ambulatory Orders Medication Instructions Recorded Confirmed Pnv No.95/Ferrous Fum/Folic AC 1 tab PO DAILY PM 08/23/21 09/01/23 [ Tablet] Aspirin [[place] Aspirin] 81 mg PO DAILY 09/01/23 09/01/23 Docusate Sodium [Dok] 100 mg PO DAILY PRN 09/01/23 09/01/23 Loratadine [Claritin] 10 mg PO DAILY 09/01/23 09/01/23 Acetaminophen 650 mg PO Q4HR PRN #30 ea 09/03/23 Ibuprofen [Motrin] 600 mg PO Q6H PRN #30 tab 09/03/23 Mecobalamin [B12 Active] 1,000 mcg PO DAILY #365 ea 09/03/23 Labetalol [Trandate] 100 mg PO BID #60 tablet 09/13/23 - PHYSICAL EXAM AT DISCHARGE General Appearance: positive: No acute distress Eyes Bilateral: positive: Normal inspection Cardiovascular: positive: Regular rate & rhythm Extremities: positive: No pedal edema Physical Exam Other/Comments: bp: 151/85 Pulse: 72 - LABS Result Diagrams: 09/13/23 19:45 09/13/23 19:45 - FOLLOW UP Follow Up: tomorrow for bp check with her baby's weight check. - TIME SPENT Time Spent in Discharge (Minutes): 30
[2023-09-13 22:10] VITALS: BP 151/85
--- NOTE | 2023-09-14 04:38 | Labor Flowsheet ---
Labor Flowsheet Datetime Report Generated by CPN: 09/14/2023 04:37 Datetime: 09/03/2023 10:39 VITAL SIGNS NBP Sys/Nichelle/Mean (mmHg): 143 : 87 : 101 Pulse: 76 SpO2 (%): 99 Datetime: 09/02/2023 11:30 Stage of : Epidural catheter removed with blue tip intact. IV saline locked. Patient ambula otoniel to bathroom with steady gait. Voided 500 mls of clear yellow urine. Patient performed pericare, a pplied pads, icepack and underwear. Linens and underpads on bed changed. Patient ambulated back to be d with steady gait., denies additional needs at this time. Call light within reach. Datetime: 09/02/2023 09:45 Temperature (C): 36.7 Temperature Route: Oral PAIN Pain Scale: 0 Datetime: 09/02/2023 09:34 I/O Interventions: Infante Discontinued Patient Care Comments: Infante removed with 250 mls of clear yellow urine in infante bag. Start of mate rnal pushing effort. Datetime: 09/02/2023 09:33 VAGINAL EXAM Dilatation (cm): 10.0 Effacement (%): 100 Station: 2 Exam by: DrAydee Degroot Vaginal Bleeding: Normal Show Datetime: 09/02/2023 09:30 LaborFlag: Labor Datetime: 09/02/2023 09:03 COMMUNICATION Communication: RN at Bedside; RN Reviewed Strip; Provider at Bedside Communication Comments: Dr. Degroot at bedside discussing POC with patient. Patient feels intermitten t pressure with contractions, will call out if it becomes constant. Datetime: 09/02/2023 08:00 UTERINE ACTIVITY Monitor Mode: Internal Frequency (min): 2-3 Quality: Strong Duration (sec): 60-90 Pattern: Normal: <= 5 Contractions in 10 Minutes Resting Tone (Palpate): Relaxed Pitocin Checklist: At Least 1 Acceleration of 15 bpm x 15 Seconds in 30 Minutes or Adequate Variabi lity; No More than 1 Late Deceleration Occurred in Past 30 Minutes; No More than 2 Variable Decelerat ions > 60 Seconds in Duration and decreasing >60 bpm in 30 minutes; No More than 5 Uterine Contractio ns in 10 Minutes for any 20 Minute Interval; Uterus Palpates Soft between Contractions; IUPC Resting Tone less than 25 mmHg MONTEVIDEO UNITS (Computed) Contractions in Ten Minutes: 5 (Annotations: Data stored by CPN on behalf of user) ASSESSMENT A Monitor Mode: External US FHR Baseline Rate : 135 Variability: Moderate 6-25 bpm Accelerations: 15X15 Decelerations: Early; Variable Datetime: 09/02/2023 07:32 Patient Position/Activity: High Fowlers Datetime: 09/02/2023 07:30 Resting Tone IUP (mmHg): 25 Intensity IUP (mmHg): 80 IUPC Average Intensity: 80 IUPC Average Resting Tone: 25 Rewey Units (mmHg): 275 PATIENT CARE IV/Blood Work: IV Bolus Started; IV Bolus Given ml @ 300ml @ 900ml/hr Datetime: 09/02/2023 06:56 MEDICATIONS Pitocin (milliunits): Increased to @ 16 Datetime: 09/02/2023 06:55 Category: Category II Datetime: 09/02/2023 06:29 Antibiotics: Ampicillin IV 1 Gm Datetime: 09/02/2023 06:15 Comments: interrupted strip pattern Datetime: 09/02/2023 05:45 Monitor Interventions for UA: IUPC Inserted Membrane Comments: iupc Datetime: 09/02/2023 05:40 Membrane Status: Ruptured Membranes Ruptured Date/Time: 09/02/2023 05:40 Membranes Rupture Method: Artificial Amniotic Fluid Color: Clear Amniotic Fluid Amount: Moderate Amniotic Fluid Odor: None Datetime: 09/02/2023 05:33 Antiemetics/Antacids: Zofran (mg) @ 4 Datetime: 09/02/2023 05:31 Pain Presence: None/Denies Notification Reason: Labor Status Datetime: 09/02/2023 04:42 FHR Baseline Changes: No Baseline Change Epidural Procedure: Loading Dose Datetime: 09/02/2023 04:29 Epidural Positioning: Sitting Datetime: 09/02/2023 04:27 PROCEDURE TIME OUT Procedure Verify: Correct Patient Identity; Accurate Procedure Consent Form; Agreement on Procedure to be Done Datetime: 09/02/2023 04:24 Provider Notified (Name): A. Mitra, ASSOCIATE SOFTWARE ENGINEER Datetime: 09/02/2023 04:00 ANESTHESIA Anesthesia Plans: Epidural Anesthesia Comments: A Mitra notified to come in for epidural placement Datetime: 09/02/2023 03:59 Pain Assessment Comments: pt requesting epidural prior to amniotomy Datetime: 09/02/2023 03:39 Cervix, Consistency: Soft Cervix, Position: Posterior Datetime: 09/02/2023 03:28 Breath Sounds, Right: Clear and Equal Datetime: 09/02/2023 03:19 Pain Coping: Breathing Through Contractions Datetime: 09/02/2023 03:15 Contraction Comments: unable to assess d/t maternal positioning Datetime: 09/02/2023 02:36 Pain Relief Measures: Comfort Measures Comfort Measures: Breathing/Relaxation; Family Support Datetime: 09/02/2023 00:26 Pain Type: Contraction Datetime: 09/01/2023 23:14 Maternal Comments: pt reports IV site is sore, tender. pt requestes new IV Datetime: 09/01/2023 19:23 MATERNAL ASSESSMENT Level of Consciousness: Alert DTR's/Clonus: No Clonus Breath Sounds, Left: Clear and Equal Nausea/Vomiting: Denies RUQ Epigastric Pain: Denies Datetime: 09/01/2023 19:00 Pain Location: Back Datetime: 09/01/2023 18:57 Monitor Interventions for FHR: Ultrasound Adjusted Datetime: 09/01/2023 15:20 Respirations: 14 Datetime: 09/01/2023 13:56 Cervical Ripening Agents: Cytotec @ Datetime: 09/01/2023 12:30 Oxygen Method: Room Air
== END 2023-09-13 22:45 | disposition home or self-care (01) ==
LOC: WFO 18:50 → FBP 18:51 → WFO 21:15
PROVIDERS: ADMIT Obstetrics & Gynecology; ATTEND Obstetrics & Gynecology
DX: O16.5 Unspecified maternal hypertension, complicating the puerperium (principal); O90.89 Other complications of the puerperium, not elsewhere classified; R07.9 Chest pain, unspecified
CPT/HCPCS: 36415; 80053; 82570; 84156; 85025; A9270; G0378

== ENCOUNTER 2024-02-12 14:53 | Outpatient (CLI) | payer OTHER ==
--- NOTE | 2024-02-13 20:17 | XRAY Report ---
PROCEDURE: Chest 2V INDICATIONS: WHEEZING TECHNIQUE: 2 views of the chest were acquired. COMPARISON: None. FINDINGS: Surgical changes and devices: None. Lungs and pleura: No pleural effusions or pneumothorax. Lungs are clear. Mediastinum: Mediastinal contours appear normal. Heart size is normal. Bones and chest wall: No suspicious bony lesions. Overlying soft tissues appear unremarkable. IMPRESSION: No acute cardiopulmonary process. Reviewed by: Dominick Brenner MD on 02/13/2024 8:15 PM PDT Approved by: Dominick Brenner MD on 02/13/2024 8:15 PM PDT Station ID: [id number]
== END 2024-02-12 14:54 | disposition home or self-care (01) ==
LOC: DI 14:53
PROVIDERS: ATTEND Registered Nurse
DX: R06.2 Wheezing (principal)